=== PATIENT | female | born 1940 | race Caucasian/White ===

== ENCOUNTER → 2016-10-21 | Outpatient (CLI) | payer MEDICARE ==
--- NOTE | 2016-10-21 14:34 | MM ---
Reason for exam: screening (asymptomatic). Last mammogram was performed 1 year ago. History: Patient is postmenopausal. Benign cyst aspiration of the right breast, April 25, 2004. Took estrogen for 20 years beginning at age 41. Physical Findings: A clinical breast exam by your physician is recommended on an annual basis and results should be correlated with mammographic findings. MG 3D Screening Mammo W/Cad Bilateral CC and MLO view(s) were taken. Prior study comparison: October 16, 2015, bilateral MG 3d screening mammo w/cad. September 06, 2014, bilateral MG screening mammo w CAD. The breast tissue is heterogeneously dense. This may lower the sensitivity of mammography. New nodule inner upper right breast 8.2cm from nipple. This finding is changed when compared with previous exams. ASSESSMENT: Incomplete: need additional imaging evaluation, BI-RAD 0 RECOMMENDATION: Special view mammogram and ultrasound of the right breast. [facility] will attempt to contact patient to return for supplemental views and ultrasound.
== END | disposition home or self-care (01) ==
LOC: RADMAMWWP 07:25
PROVIDERS: ATTEND Internal Medicine
DX: Z12.31 Encounter for screening mammogram for malignant neoplasm of breast (principal)
CPT/HCPCS: 77063; G0202

== ENCOUNTER → 2016-11-02 | Outpatient (CLI) | payer MEDICARE ==
--- NOTE | 2016-11-02 14:49 | MM ---
Reason for exam: additional evaluation requested from abnormal screening. Last mammogram was performed less than 1 month ago. History: Patient is postmenopausal. Benign cyst aspiration of the right breast, April 25, 2004. Took estrogen for 20 years beginning at age 41. Physical Findings: Nurse did not find any significant physical abnormalities on exam. MG 3D Work Up W/Cad RT Spot compression CC, spot compression MLO, and LM view(s) were taken of the right breast. Prior study comparison: October 21, 2016, bilateral MG 3d screening mammo w/cad. October 16, 2015, bilateral MG 3d screening mammo w/cad. There are scattered fibroglandular densities. Finding: There are typically benign calcifications in the right breast. These results were verbally communicated with the patient and result sheet given to the patient on 11/02/16. ASSESSMENT: Probably benign, BI-RAD 3 RECOMMENDATION: Follow-up diagnostic mammogram of the right breast in 6 months.
== END | disposition home or self-care (01) ==
LOC: RADMAMWWP 14:06
PROVIDERS: ATTEND Internal Medicine
DX: R92.8 Other abnormal and inconclusive findings on diagnostic imaging of breast (principal)
CPT/HCPCS: G0206; G0279

== ENCOUNTER → 2017-01-07 | Outpatient (CLI) | payer MEDICARE ==
[2017-01-07 09:40] LABS: ALT 36 U/L (9-52); AST 27 U/L (14-36); Alkaline Phosphatase 67 U/L (38-126); Anion Gap 11 mmol/L; Blood Urea Nitrogen 21 mg/dL (7-17); Carbon Dioxide 28 mmol/L (22-30); Chloride 105 mmol/L (98-107); Cholesterol 175 mg/dL (<200); Glucose 108 mg/dL (74-99); HDL Cholesterol 71 mg/dL (40-60); Non-African American GFR(MDRD) 54 (>60 ml/min/1.73 sqM); Potassium 4.2 mmol/L (3.5-5.1); Sodium 144 mmol/L (137-145); Total Bilirubin 0.8 mg/dL (0.2-1.3); Total Protein 7.5 g/dL (6.3-8.2)
== END | disposition home or self-care (01) ==
LOC: LABWHC1 08:54
PROVIDERS: ATTEND Internal Medicine Interventional Cardiology
DX: E78.2 Mixed hyperlipidemia (principal)
CPT/HCPCS: 36415; 80053; 80061

== ENCOUNTER → 2017-07-12 | Outpatient (CLI) | payer MEDICARE ==
--- NOTE | 2017-07-12 10:48 | MM ---
Reason for exam: follow-up at short interval from prior study. Last mammogram was performed 8 months ago. History: Patient is postmenopausal. Benign cyst aspiration of the right breast, April 25, 2004. Took estrogen for 20 years beginning at age 41. Physical Findings: Nurse Summary: 1cm nodule in the right breast at 2 o'clock (nurse mj). MG 3D Diag Mammo W/Cad RT CC and MLO view(s) were taken of the right breast. Prior study comparison: November 02, 2016, right breast MG 3d work up w/cad RT. October 21, 2016, bilateral MG 3d screening mammo w/cad. The breast tissue is heterogeneously dense. This may lower the sensitivity of mammography. Stable 1cm circumscribed mass at 2 o'clock. This may correspond to the palpable finding. Benign vascular calcifications. These results were verbally communicated with the patient and result sheet given to the patient on 07/12/17. ASSESSMENT: Incomplete: need additional imaging evaluation, BI-RAD 0 RECOMMENDATION: Ultrasound of the right breast. (upper inner quadrant)
--- NOTE | 2017-07-12 10:52 | USB ---
Reason for exam: additional evaluation requested from abnormal screening. History: Patient is postmenopausal. Benign cyst aspiration of the right breast, April 25, 2004. Took estrogen for 20 years beginning at age 41. US Breast Limited RT Right breast ultrasound demonstrates a 0.9 x 0.9 x 0.4cm oval, hypoechoic lesion at 1 o'clock and hyperechoic dense tissue at 2:30 BB measuring 0.7 x 0.4 x 0.2cm. These results were verbally communicated with the patient and result sheet given to the patient on 07/12/17. ASSESSMENT: Suspicious, BI-RAD 4 RECOMMENDATION: Stereotactic or US core biopsy of the right breast 9mm lesion likely corresponding to mammo abnormality. (size and depth may make ultrasound little more difficult than stereo? radiologist preference) Patient states she will contact Dr. Poe this afternoon to discuss follow up and biopsy. PRELIMINARY REPORT CALLED AND FAXED TO DR. POE ON 07/12/17. [facility]
== END | disposition home or self-care (01) ==
LOC: RADMAMWWP 08:46
PROVIDERS: ATTEND Internal Medicine
DX: R92.8 Other abnormal and inconclusive findings on diagnostic imaging of breast (principal)
CPT/HCPCS: 77065; 76642; G0279

== ENCOUNTER → 2017-08-02 | Day surgery (SDC) | payer MEDICARE ==
[2017-08-02 13:52] VITALS: PULSE 76; RESP 16; BMI 26.4
[2017-08-02 15:27] VITALS: BP 155/67; TEMP 97.6
--- NOTE | 2017-08-02 15:48 | MM ---
EXAMINATION TYPE: MG stereo VAD BX RT DATE OF EXAM: 08/02/2017 COMPARISON: Mammogram and ultrasound July 12, 2017 and older studies CLINICAL HISTORY: Abnormal mammogram and ultrasound. TECHNIQUE: Stereotactic guided core biopsy of right breast with clip placement and follow-up two-view mammogram. FINDINGS: The procedure of stereotactic guided core biopsy was explained to the patient. Benefits, alternatives, and risks were discussed. An informed consent was then obtained. [facility] pathway for [facility] was chosen. Shortness pathway was medial approach. The lesion was difficult to localize due to posterior location using this approach the inferior approach had to be chosen. I performed the localization, then performed the remainder of the procedure. Overlying skin is cleansed with Betadine. Lidocaine with bicarbonate is used as anesthetic into the skin and deeper tissue. Lidocaine with epinephrine is used as anesthetic into the deeper tissue. A vacuum assisted biopsy gun was used to obtain multiple core samples. The patient tolerated the procedure well without any immediate complication. The patient was kept in the radiology department for short stay after the procedure and then discharged home in stable condition. Post biopsy mammogram shows the clip to appear in satisfactory position relative to the targeted area of concern on the preprocedure images. IMPRESSION: SUCCESSFUL, UNCOMPLICATED STEREOTACTIC GUIDED CORE BIOPSY OF AREA OF CONCERN IN THE RIGHT BREAST, FULL PATHOLOGY RESULTS TO FOLLOW. Intermediate index of suspicion noted at time of procedure. Pathology Results: Benign BREAST, RIGHT, STEREOTACTIC CORE BIOPSY: FIBROCYSTIC CHANGES INCLUDING CYSTS, FIBROSIS, APOCRINE METAPLASIA, SCLEROSING ADENOSIS, FOCAL USUAL TYPE DUCTAL HYPERPLASIA AND RARE MICROCALCIFICATIONS. Recommendation Follow up mammogram of the right breast in 6 months. KLARISSA
== END ==
LOC: RADMAMWWP 13:24
PROVIDERS: ATTEND Internal Medicine
DX: R92.8 Other abnormal and inconclusive findings on diagnostic imaging of breast (principal); N60.11 Diffuse cystic mastopathy of right breast; N60.21 Fibroadenosis of right breast
CPT/HCPCS: 88305; 19081; A4648; J2001

== ENCOUNTER → 2017-12-30 | Outpatient (CLI) | payer MEDICARE ==
[2017-12-30 10:37] LABS: Basophils % (A) 0 %; Eosinophils # (A) 0.4 k/uL (0-0.7); Eosinophils % (A) 5 %; HCT 41.3 % (34.0-46.0); HGB 13.7 gm/dL (11.4-16.0); Lymphocytes # (A) 1.9 k/uL (1.0-4.8); Lymphocytes % (A) 29 %; MCH 30.9 pg (25.0-35.0); MCHC 33.1 g/dL (31.0-37.0); MCV 93.2 fL (80.0-100.0); Mean Platelet Volume 7.4; Monocytes # (A) 0.5 k/uL (0-1.0); Monocytes % (A) 8 %; Neutrophils # (A) 3.5 k/uL (1.3-7.7); Neutrophils % (A) 55 %; Platelet Count 238 k/uL (150-450); RBC 4.43 m/uL (3.80-5.40); RDW 12.9 % (11.5-15.5); WBC 6.5 k/uL (3.8-10.6)
[2017-12-30 10:44] LABS: Albumin 4.5 g/dL (3.5-5.0); Calcium 10.1 mg/dL (8.4-10.2); Potassium 4.2 mmol/L (3.5-5.1); Total Bilirubin 0.7 mg/dL (0.2-1.3); Total Protein 7.5 g/dL (6.3-8.2)
[2017-12-30 20:02] LABS: Hemoglobin A1C 6.2 % (4.0-6.0)
== END | disposition home or self-care (01) ==
LOC: LABWHC1 08:56
PROVIDERS: ATTEND Internal Medicine Interventional Cardiology
DX: I10 Essential (primary) hypertension (principal); I25.10 Atherosclerotic heart disease of native coronary artery without angina pectoris; E78.2 Mixed hyperlipidemia; E11.9 Type 2 diabetes mellitus without complications
CPT/HCPCS: 36415; 80053; 80061; 82550; 83036; 85025

== ENCOUNTER → 2018-02-03 | Outpatient (CLI) | payer MEDICARE ==
--- NOTE | 2018-02-03 10:44 | MM ---
Reason for exam: follow-up at short interval from prior study. Last mammogram was performed 7 months ago. History: Patient is postmenopausal and has history of other cancer at age 77. Benign MG stereo VAD BX RT of the right breast, August 02, 2017. Benign cyst aspiration of the right breast, April 25, 2004. Took estrogen for 20 years beginning at age 41. Physical Findings: Nurse did not find any significant physical abnormalities on exam. MG 3D Diag Mammo W/Cad SKYE Bilateral CC and MLO view(s) were taken. Prior study comparison: July 12, 2017, right breast MG 3d diag mammo w/cad RT. November 02, 2016, right breast MG 3d work up w/cad RT. The breast tissue is heterogeneously dense. This may lower the sensitivity of mammography. There are benign appearing round vascular calcifications bilaterally. Previous mammotome biopsy in the right breast. There is chronic nodularity in the left breast. There is no dominant lesion. Asymmetric breast tissue left inferior breast is stable. These results were verbally communicated with the patient and result sheet given to the patient on 02/03/18. ASSESSMENT: Benign, BI-RAD 2 RECOMMENDATION: Routine screening mammogram of both breasts in 1 year.
--- NOTE | 2018-02-03 10:46 | USB ---
Reason for exam: follow-up at short interval from prior study. History: Patient is postmenopausal and has history of other cancer at age 77. Benign MG stereo VAD BX RT of the right breast, August 02, 2017. Benign cyst aspiration of the right breast, April 25, 2004. Took estrogen for 20 years beginning at age 41. US Breast RT Right complete breast ultrasound includes all four quadrants, the retroareolar region and axilla. Finding demonstrates a 7 x 2 x 8mm oval, mixed lesion at 12 o'clock, decreased in size after benign biopsy 6 months ago. These results were verbally communicated with the patient and result sheet given to the patient on 02/03/18. ASSESSMENT: Benign, BI-RAD 2 RECOMMENDATION: Routine screening mammogram of both breasts in 1 year.
== END | disposition home or self-care (01) ==
LOC: RADMAMWWP 08:45
PROVIDERS: ATTEND Surgery
DX: R92.8 Other abnormal and inconclusive findings on diagnostic imaging of breast (principal)
CPT/HCPCS: 77066; 76641; G0279; 77062

== ENCOUNTER → 2018-07-05 | Outpatient (CLI) | payer MEDICARE ==
[2018-07-05 10:04] LABS: Appearance,Urine Clear (Clear); Bacteria,Urine Rare /hpf; Bilirubin,Urine Negative (Negative); Blood,Urine Negative (Negative); Color,Urine Yellow; Glucose,Urine (UA) Negative (Negative); Hyaline Casts,Urine 35 /lpf (0-2); Ketones,Urine Negative (Negative); Leukocyte Esterase,Urine Small (Negative); Mucus,Urine Occasional /hpf; Nitrite,Urine Negative (Negative); Protein,Urine Trace (Negative); RBC,Urine 1 /hpf (0-5); Specific Gravity,Urine 1.021 (1.001-1.035); Squamous Epithelial Cell,Urine 1 /hpf (0-4); Transitional Epi Cells,Urine <1 /hpf (0-1); Urobilinogen,Urine <2.0 mg/dL (<2.0); WBC,Urine 5 /hpf (0-5)
[2018-07-05 10:41] LABS: Basophils % (A) 1 %; Eosinophils # (A) 0.2 k/uL (0-0.7); Eosinophils % (A) 3 %; HCT 39.4 % (34.0-46.0); Lymphocytes # (A) 1.8 k/uL (1.0-4.8); Lymphocytes % (A) 32 %; MCH 30.6 pg (25.0-35.0); MCV 92.9 fL (80.0-100.0); Mean Platelet Volume 7.6; Monocytes # (A) 0.5 k/uL (0-1.0); Monocytes % (A) 8 %; Neutrophils # (A) 2.9 k/uL (1.3-7.7); Neutrophils % (A) 52 %; Platelet Count 266 k/uL (150-450); RBC 4.24 m/uL (3.80-5.40); RDW 13.5 % (11.5-15.5); WBC 5.6 k/uL (3.8-10.6)
[2018-07-05 17:10] LABS: Albumin 4.7 g/dL (3.80-4.90); Albumin/Globulin Ratio 2.14 (1.60-3.17); Calcium 10.1 mg/dL (8.7-10.3); Globulin 2.2 g/dL (1.6-3.3); LDL Cholesterol,Calculated 94.8 mg/dL (0.0-131.0); Magnesium 1.8 mg/dL (1.5-2.4); Potassium 3.8 mmol/L (3.5-5.5); Total Bilirubin 0.8 mg/dL (0.3-1.2); Total Protein 6.9 g/dL (6.2-8.2); Uric Acid 7.4 mg/dL (2.9-7.7); VLDL Calculation 17.2 mg/dL (5.00-40.00)
[2018-07-05 17:31] LABS: T4, Free (Free Thyroxine) 0.8 ng/dL (0.80-1.80)
[2018-07-05 18:21] LABS: Hemoglobin A1C 6.3 % (4.0-6.0)
== END ==
LOC: LABWHC1 08:11
PROVIDERS: ATTEND Internal Medicine
DX: I10 Essential (primary) hypertension (principal); E78.2 Mixed hyperlipidemia; E55.9 Vitamin D deficiency, unspecified; R73.03 Prediabetes
CPT/HCPCS: 36415; 80053; 80061; 81001; 82043; 82306; 82550; 82570; 83036; 83735; 84439; 84443; 84550; 85025

== ENCOUNTER → 2019-02-07 | Outpatient (CLI) | payer MEDICARE ==
--- NOTE | 2019-02-07 14:39 | MM ---
Reason for exam: additional evaluation requested from prior study. Last mammogram was performed 1 year ago. History: Patient is postmenopausal and has history of other cancer at age 77. Benign MG stereo VAD BX RT of the right breast, August 02, 2017. Benign cyst aspiration of the right breast, April 25, 2004. Took estrogen for 20 years beginning at age 41. Physical Findings: Nurse Summary: 0.5cm nodule in the right breast at 2 o'clock (nurse TM). MG 3D Diag Mammo W/Cad SKYE Bilateral CC and MLO view(s) were taken. Prior study comparison: February 03, 2018, bilateral MG 3d diag mammo w/cad SKYE. July 12, 2017, right breast MG 3d diag mammo w/cad RT. The breast tissue is heterogeneously dense. This may lower the sensitivity of mammography. Benign appearing bilateral calcifications. There is chronic nodularity in the left breast reduced in size. These results were verbally communicated with the patient and result sheet given to the patient on 02/07/19. ASSESSMENT: Incomplete: need additional imaging evaluation, BI-RAD 0 RECOMMENDATION: Ultrasound of the right breast.
--- NOTE | 2019-02-07 14:40 | USB ---
Reason for exam: additional evaluation requested from abnormal screening. History: Patient is postmenopausal and has history of other cancer at age 77. Benign MG stereo VAD BX RT of the right breast, August 02, 2017. Benign cyst aspiration of the right breast, April 25, 2004. Took estrogen for 20 years beginning at age 41. US Breast Limited RT Right limited breast ultrasound including focal area of concern, retroareolar and axilla demonstrates no cystic or solid lesion seen. These results were verbally communicated with the patient and result sheet given to the patient on 02/07/19. ASSESSMENT: Benign, BI-RAD 2 RECOMMENDATION: Routine screening mammogram of both breasts in 1 year. Manage patient on a clinical basis.
== END | disposition home or self-care (01) ==
LOC: RADMAMWWP 12:42
PROVIDERS: ATTEND Internal Medicine
DX: N63.10 Unspecified lump in the right breast, unspecified quadrant (principal); R92.8 Other abnormal and inconclusive findings on diagnostic imaging of breast
CPT/HCPCS: 77066; 76642; G0279; 77062

== ENCOUNTER → 2019-02-14 | Outpatient (CLI) | payer MEDICARE ==
[2019-02-14 16:38] LABS: African American GFR (CKD) 55.3 (60.0-200.0); Albumin 4.5 g/dL (3.80-4.90); Albumin/Globulin Ratio 2.14 (1.60-3.17); Anion Gap 11.4 mmol/L (4.00-12.00); BUN/Creat Ratio 25.45 Ratio (12.00-20.00); Calcium 9.9 mg/dL (8.7-10.3); Carbon Dioxide 26.6 mmol/L (21.6-31.8); Chol/HDL Ratio 2.8; Globulin 2.1 g/dL (1.6-3.3); LDL Cholesterol,Calculated 72.6 mg/dL (0.0-131.0); Potassium 4.2 mmol/L (3.5-5.5); Total Bilirubin 0.7 mg/dL (0.2-1.2); Total Protein 6.6 g/dL (6.2-8.2); VLDL Calculation 26.4 mg/dL (5.00-40.00)
[2019-02-14 17:50] LABS: Hemoglobin A1C 6.2 % (4.0-6.0)
== END | disposition home or self-care (01) ==
LOC: LABWHC1 07:48
PROVIDERS: ATTEND Internal Medicine Interventional Cardiology
DX: E11.9 Type 2 diabetes mellitus without complications (principal); E78.5 Hyperlipidemia, unspecified
CPT/HCPCS: 36415; 80053; 80061; 83036

== ENCOUNTER → 2019-02-16 | Outpatient (CLI) | payer MEDICARE ==
--- NOTE | 2019-02-17 07:07 | US ---
EXAMINATION TYPE: US kidneys/renal and bladder DATE OF EXAM: 02/16/2019 COMPARISON: NONE CLINICAL HISTORY: N18.2. CKD Stage 2. EXAM MEASUREMENTS: Right Kidney: 9.4 x 5.4 x 4.4 cm Left Kidney: 9.3 x 4.9 x 5.2 cm Right Kidney: Anechoic area with hypoechoic component seen laterally measurin.6 x 2.7 x 2.4 cm. Left Kidney: Indistinct hypoechoic area seen mid measurin.8 x 1.4 x 1.1 cm. ?Minimal cortical thinning bilateral kidneys. Bladder: Appears to be anechoic Bilateral Jets seen: Yes IMPRESSION: 1. Bilateral renal cystic changes seen. No solid mass identified.
== END | disposition home or self-care (01) ==
LOC: RADUSMAIN 17:29
PROVIDERS: ATTEND Internal Medicine
DX: N18.2 Chronic kidney disease, stage 2 (mild) (principal)
CPT/HCPCS: 76770

== ENCOUNTER → 2019-08-23 | Outpatient (CLI) | payer MEDICARE ==
[2019-08-23 09:49] LABS: Basophils % (A) 0 %; Eosinophils # (A) 0.2 k/uL (0-0.7); Eosinophils % (A) 3 %; HCT 45.4 % (34.0-46.0); HGB 14.5 gm/dL (11.4-16.0); Lymphocytes # (A) 1.6 k/uL (1.0-4.8); Lymphocytes % (A) 26 %; MCH 30.1 pg (25.0-35.0); MCHC 31.9 g/dL (31.0-37.0); MCV 94.5 fL (80.0-100.0); Mean Platelet Volume 7.9; Monocytes # (A) 0.5 k/uL (0-1.0); Monocytes % (A) 7 %; Neutrophils # (A) 3.7 k/uL (1.3-7.7); Neutrophils % (A) 61 %; Platelet Count 219 k/uL (150-450); RBC 4.81 m/uL (3.80-5.40); RDW 13.7 % (11.5-15.5); WBC 6.2 k/uL (3.8-10.6)
[2019-08-23 16:10] LABS: African American GFR (CKD) 61.6 (60.0-200.0); Albumin 4.5 g/dL (3.80-4.90); Albumin/Globulin Ratio 1.88 (1.60-3.17); Anion Gap 6.2 mmol/L (4.00-12.00); Calcium 9.8 mg/dL (8.7-10.3); Carbon Dioxide 27.8 mmol/L (21.6-31.8); Chol/HDL Ratio 2.63; Globulin 2.4 g/dL (1.6-3.3); LDL Cholesterol,Calculated 68.2 mg/dL (0.0-131.0); Non-African American GFR(CKD) 53.2 (60.0-200.0); Potassium 4.7 mmol/L (3.5-5.5); Total Bilirubin 0.8 mg/dL (0.2-1.2); Total Protein 6.9 g/dL (6.2-8.2); VLDL Calculation 19.8 mg/dL (5.00-40.00)
[2019-08-23 19:01] LABS: Hemoglobin A1C 5.9 % (4.0-6.0)
== END | disposition home or self-care (01) ==
LOC: LABWHC1 08:24
PROVIDERS: ATTEND Internal Medicine Interventional Cardiology
DX: Z00.00 Encounter for general adult medical examination without abnormal findings (principal); E78.2 Mixed hyperlipidemia; R73.03 Prediabetes; I10 Essential (primary) hypertension
CPT/HCPCS: 36415; 80053; 80061; 83036; 84436; 84443; 85025

== ENCOUNTER → 2020-01-04 | Outpatient (CLI) | payer MEDICARE ==
[2020-01-04 08:26] LABS: Basophils % (A) 1 %; Eosinophils # (A) 0.2 k/uL (0-0.7); Eosinophils % (A) 2 %; HCT 42.8 % (34.0-46.0); HGB 13.8 gm/dL (11.4-16.0); Lymphocytes # (A) 2.6 k/uL (1.0-4.8); Lymphocytes % (A) 37 %; MCH 31.5 pg (25.0-35.0); MCHC 32.3 g/dL (31.0-37.0); MCV 97.4 fL (80.0-100.0); Mean Platelet Volume 7.3; Monocytes # (A) 0.6 k/uL (0-1.0); Monocytes % (A) 8 %; Neutrophils # (A) 3.6 k/uL (1.3-7.7); Neutrophils % (A) 50 %; Platelet Count 226 k/uL (150-450); RBC 4.39 m/uL (3.80-5.40); RDW 12.7 % (11.5-15.5); WBC 7.2 k/uL (3.8-10.6)
[2020-01-04 17:07] LABS: Hemoglobin A1C 6.3 % (4.0-6.0)
[2020-01-04 18:47] LABS: African American GFR (CKD) 54.9 (60.0-200.0); Albumin 4.5 g/dL (3.80-4.90); Albumin/Globulin Ratio 2.05 (1.60-3.17); BUN/Creat Ratio 23.64 Ratio (12.00-20.00); Calcium 9.9 mg/dL (8.7-10.3); Chol/HDL Ratio 2.68; Globulin 2.2 g/dL (1.6-3.3); LDL Cholesterol,Calculated 70.2 mg/dL (0.0-131.0); Non-African American GFR(CKD) 47.4 (60.0-200.0); Potassium 4.4 mmol/L (3.5-5.5); Total Bilirubin 0.8 mg/dL (0.3-1.2); Total Protein 6.7 g/dL (6.2-8.2); VLDL Calculation 23.8 mg/dL (5.00-40.00)
== END | disposition home or self-care (01) ==
LOC: LABWHC1 07:50
PROVIDERS: ATTEND Nurse Practitioner Adult Health
DX: E78.2 Mixed hyperlipidemia (principal); I10 Essential (primary) hypertension; R73.03 Prediabetes
CPT/HCPCS: 36415; 80053; 80061; 83036; 84443; 85025

== ENCOUNTER → 2020-01-19 | Outpatient (CLI) | payer MEDICARE ==
--- NOTE | 2020-01-19 12:10 | XR ---
EXAMINATION TYPE: XR cervical spine limited DATE OF EXAM: 01/19/2020 Comparison: 10/16/2013 Clinical History: 79-year-old female M47.22 spondylosis Findings: Multilevel uncovertebral joint and hypertrophic facet of L3. Moderately advanced degenerative disc di sease and endplate spondylosis C5-C7 levels. Reversal of the normal cervical lordosis but with preser lottie alignment. Normal odontoid view. Median sternotomy wires are present. No predental space widening or prevertebral soft tissue swelling . Impression: Moderate to advanced multilevel spondylotic change redemonstrated. Reversal of the normal cervical lo rdosis could be positional or due to muscle spasm.
== END | disposition home or self-care (01) ==
LOC: RADXRMAIN 11:03
PROVIDERS: ATTEND Internal Medicine
DX: M47.812 Spondylosis without myelopathy or radiculopathy, cervical region (principal)
CPT/HCPCS: 72040

== ENCOUNTER → 2020-04-23 | Outpatient (CLI) | payer MEDICARE ==
--- NOTE | 2020-04-24 09:47 | MM ---
Reason for exam: screening (asymptomatic). Last mammogram was performed 1 year and 2 months ago. History: Patient is postmenopausal and has history of other cancer at age 77. Benign MG stereo VAD BX RT of the right breast, August 02, 2017. Benign cyst aspiration of the right breast, April 25, 2004. Took hormonal contraceptives for 10 years. Took estrogen for 20 years beginning at age 41. Physical Findings: A clinical breast exam by your physician is recommended on an annual basis and results should be correlated with mammographic findings. MG 3D Screening Mammo W/Cad Bilateral CC and MLO view(s) were taken. Prior study comparison: February 07, 2019, bilateral MG 3d diag mammo w/cad SKYE. February 03, 2018, bilateral MG 3d diag mammo w/cad SKYE. The breast tissue is heterogeneously dense. This may lower the sensitivity of mammography. There are benign appearing round, vascular calcifications bilaterally. Previous mammotome biopsy in the right breast. There is no discrete abnormality. ASSESSMENT: Benign, BI-RAD 2 RECOMMENDATION: Routine screening mammogram of both breasts in 1 year.
== END | disposition home or self-care (01) ==
LOC: RADMAMWWP 09:32
PROVIDERS: ATTEND Internal Medicine
DX: Z12.31 Encounter for screening mammogram for malignant neoplasm of breast (principal)
CPT/HCPCS: 77063; 77067

== ENCOUNTER 2020-06-24 20:23 | Emergency (ER) | payer MEDICARE ==
[2020-06-24 22:30] VITALS: TEMP 97.7
--- NOTE | 2020-06-24 22:49 | ED ---
Medical Decision Making - Medical Decision Making Dictation was produced using Med fusion dictation software. please excuse any grammatical, word or spelling errors. This patient was cared for during a federal and state declared state of emergency secondary to Covid 19 80-year-old female presents to the emergency department with hypertension. Patient states that she has medical history of hypertension she is on multiple antihypertensive medications. Patient also has history of cardiac disease. She has been having her blood pressure managed by her primary care doctor and film spooler with slight improvement. She just was told to increase her losartan to twice daily. She had to decrease her metoprolol recently because of bradycardia. Current medications are as follows Hydrochlorothiazide 25 mg daily Atorvastatin 40 mg daily Metoprolol 50 mg twice a day Cozaar 100 mg twice a day, prior to today was once a day Amlodipine 5 mg twice a day Patient denies any chest pain, shortness of breath, headache or strokelike symptoms. Contact her primary care physician and was told to come to the emergency department. The ROS documented in this emergency department record has been reviewed and confirmed by me. Those systems with pertinent positive or negative responses have been documented in the HPI. All other systems are other negative and/or noncontributory. PHYSICAL EXAM: General Impression: Alert and oriented x3, not in acute distress HEENT: Normocephalic atraumatic, extra-ocular movements intact, pupils equal and reactive to light bilaterally, mucous membranes moist. Cardiovascular: Heart regular rate and rhythm Chest: Able to complete full sentences, no retractions, no tachypnea Abdomen: abdomen soft, non-tender, non-distended, no organomegaly Musculoskeletal: Pulses present and equal in all extremities, no peripheral edema Motor: no focal deficits noted Neurological: CN II-XII grossly intact, no focal motor or sensory deficits noted Skin: Intact with no visualized rashes Psych: Normal affect and mood Medical decision making: Patient has clinical presentation consistent with asymptomatic hypertension. She does not have any high-risk features. Patient has established history of hypertension. She is well-appearing and has normal vital signs. This is discussed with patient's primary care physician who requested patient be given IM hydralazine and to be given a prescription for 25 mg of hydralazine twice a day. Patient given IM hydralazine observed in emergency department no apparent issues. Blood pressures improved. Patient be discharged home with instructions to follow-up with Dr. Poe Disposition Clinical Impression: Hypertension Disposition: HOME SELF-CARE Condition: Good Instructions (If sedation given, give patient instructions): Hypertension (ED) Additional Instructions: Please check your blood pressures regularly especially during changes of her blood pressure medications.. If you start to feel lightheaded disc,ontinue hydralazine. Otherwise, it is important to follow-up with your primary care physician for outpatient management of blood pressure. Prescriptions: hydrALAZINE HCL 25 mg PO BID 6 Days #12 tablet Is patient prescribed a controlled substance at d/c from ED?: No Referrals: Suki Poe MD [Primary Care Provider] - 1-2 days Time of Disposition: 23:18
[2020-06-24] MEDS ORDERED: hydrALAZINE HCL 20 MG/ML 1 ML VIAL IM STA (22:51)
[2020-06-25] MEDS ORDERED: SODIUM CHLORIDE 0.9% 1,000 ML IV ONE (00:21)
[2020-06-25 01:22] VITALS: RESP 16
[2020-06-25 01:40] VITALS: BP 116/54; PULSE 62
== END 2020-06-25 01:40 | disposition home or self-care (01) ==
LOC: EC 20:23
DX: I10 Essential (primary) hypertension (principal)
CPT/HCPCS: 99283; 96360; 96372; J0360

== ENCOUNTER → 2021-10-23 | Outpatient (CLI) | payer MEDICARE ==
--- NOTE | 2021-10-23 16:47 | BD ---
EXAMINATION TYPE: Axial Bone Density DATE OF EXAM: 10/23/2021 CLINICAL HISTORY: 81 year old Female. ICD-10 CODE: M81.0 AGE-RELATED OSTEOPOROSIS W/ Height: 60 Weight: 137.2 FRAX RISK QUESTIONS: Alcohol (3 or more units per day): no Family History (Parent hip fracture): yes Glucocorticoids (More than 3mos): no (Ex: prednisone, prednisolone, methylprednisolone, dexamethasone, and hydrocortisone). History of Fracture in Adulthood: yes Secondary Osteoporosis: 1. Type 1 Diabetes: no 2. Hyperthyroidism: no 3. Menopause before 45: no 4. Malnutrition: no 5. Chronic liver disease: no Rheumatoid Arthritis: no Current Tobacco Use: no RISK FACTORS HISTORY OF: Surgery to Spine/Hip(right/left)/Wrist (right/left): no Family History of Osteoporosis: no Active: yes Diet low in dairy products/other sources of calcium: no Postmenopausal woman: yes Lost more than 2 inches in height since high school: no MEDICATIONS: Additional History: EXAM MEASUREMENTS: Bone mineral densitometry was performed using the [employer]. Bone mineral density as measured about the Lumbar spine is: ----- L1-L4(G/cm2): 1.123 T Score Values are as follows: ----- L1: 0.2 ----- L2: -0.7 ----- L3: -0.4 ----- L4: -1.1 ----- L1-L4: -0.5 Bone mineral density has: decreased -1.1 % since study of: 10.16.2015 Bone mineral density about the R hip (g/cm2): 0.803 Bone mineral density about the L hip (g/cm2): 0.758 T Score values are as follows: -----R Neck: -1.7 -----L Neck: -2.0 -----R Total: -0.2 -----L Total: -0.4 Bone mineral density has: decreased -2.5 % since study of: 10.16.2015 FRAX%s: The graph provided illustrates a 22.8% chance for a major osteoporotic fx and a 6.5% chance for the hips probability for fx in 10 years time. IMPRESSION: Osteopenia (T Score between -2.5 and -1). There is slightly increased risk of fracture and the patient may be considered for treatment. Re-Screen 2-5 years. NOTE: T-SCORE=SD OF THE YOUNG ADULT MEAN.
--- NOTE | 2021-10-24 10:32 | MM ---
Reason for Exam: Screening (asymptomatic). Last mammogram was performed 1 year(s) and 6 month(s) ago. Patient History: Menarche at age 12. First Full-Term at age 17. Postmenopausal. Other cancer, age 77. Estrogen for 20 years from age 41 until age 61. Patient used Hormonal Contraceptives for 10 years. 08/02/2017, Benign Core Biopsy on the right side. 04/25/2004, Benign Cyst Aspiration on the right side. Risk Values: Prisca 5 year model risk: 1.3%. NCI Lifetime model risk: 1.8%. Prior Study Comparison: 07/12/2017 Right Diagnostic Mammogram, LOCATED [facility]IN [facility]. 02/03/2018 Bilateral Diagnostic Mammogram, LOCATED [facility]. 02/07/2019 Bilateral Diagnostic Mammogram, LOCATED [facility]. 04/23/2020 Bilateral Screening Mammogram, LOCATED [facility]. Tissue Density: The breast tissue is heterogeneously dense. This may lower the sensitivity of mammography. Findings: Analyzed By CAD. Multiple benign-appearing vascular calcifications are present. Benign round calcifications are present. A core marker is within the right breast. No suspicious groups of microcalcifications, spiculated or lobular masses, architectural distortion or other secondary signs of malignancy are mammographically apparent. Overall Assessment: Benign, BI-RAD 2 Management: Screening Mammogram of both breasts in 1 year. A negative mammogram report should not preclude additional follow up of suspicious palpable abnormalities. Patient should continue monthly self breast exam. A clinical breast exam by your physician is recommended on an annual basis and results should be correlated with mammographic findings. Electronically signed and approved by: Bobo Sol D.O. Radiologis
== END | disposition home or self-care (01) ==
LOC: RADMAMWWP 09:44
PROVIDERS: ATTEND Internal Medicine
DX: Z12.31 Encounter for screening mammogram for malignant neoplasm of breast (principal); M85.89 Other specified disorders of bone density and structure, multiple sites; Z78.0 Asymptomatic menopausal state
CPT/HCPCS: 77063; 77067; 77080

== ENCOUNTER → 2022-01-02 | Outpatient (CLI) | payer MEDICARE ==
--- NOTE | 2022-01-05 06:50 | US ---
EXAMINATION TYPE: US kidneys/renal and bladder DATE OF EXAM: 01/02/2022 COMPARISON: US 02/16/2019 CLINICAL HISTORY: N18.32 CHRONIC KIDNEY DISEASE, STAGE 3B. CKD stage 3 EXAM MEASUREMENTS: Right Kidney: 9.6 x 4.7 x 5.2 cm Left Kidney: 9.4 x 4.47 x 4.4 cm Right Kidney: Cyst mid/lateral mid (slight increase in size when compared to prior)= 3.7 x 2.9 x 3.3 cm . No hydronephrosis, shadowing calculi, or contour deforming solid mass. Left Kidney: Slighty dilated renal pelvis versus renal sinus cyst . Prominent column of Crow redem onstrated. No hydronephrosis, shadowing calculi, or solid contour deforming mass. Bladder: wnl Bilateral Jets seen: Yes IMPRESSION: 1. No hydronephrosis or shadowing calculi. 2. Bilateral cystic changes redemonstrated. Slightly increased size of right renal cyst.
== END | disposition home or self-care (01) ==
LOC: RADUSWWP 16:08
PROVIDERS: ATTEND Internal Medicine
DX: N18.32 Chronic kidney disease, stage 3b (principal); N28.1 Cyst of kidney, acquired
CPT/HCPCS: 76770

== ENCOUNTER → 2022-02-05 | Outpatient (CLI) | payer MEDICARE ==
[2022-02-05 14:30] LABS: HCT 37.6 % (34.0-46.0); HGB 12.9 gm/dL (11.4-16.0); MCH 32.1 pg (25.0-35.0); MCHC 34.2 g/dL (31.0-37.0); MCV 93.7 fL (80.0-100.0); Mean Platelet Volume 8.7; Platelet Count 207 k/uL (150-450); RBC 4.01 m/uL (3.80-5.40); RDW 12.9 % (11.5-15.5); WBC 9.3 k/uL (3.8-10.6)
[2022-02-05 14:41] LABS: Potassium 3.8 mmol/L (3.5-5.1)
== END | disposition home or self-care (01) ==
LOC: LABPAT 13:17
PROVIDERS: ATTEND Internal Medicine Interventional Cardiology
DX: Z01.812 Encounter for preprocedural laboratory examination (principal); I65.21 Occlusion and stenosis of right carotid artery; R94.39 Abnormal result of other cardiovascular function study
CPT/HCPCS: 80051; 82565; 84520; 85027

== ENCOUNTER 2022-02-09 08:05 | Day surgery (SDC) | payer MEDICARE ==
[2022-02-06 09:42] VITALS: BMI 25.4
[~2022-02-09 08:05] MED LIST: ALPRAZolam 0.25 MG TAB PO PRN; ALPRAZolam 0.5 MG TAB PO PRN; ASPIRIN 325 MG TAB PO STA; ATORVASTATIN 80 MG TAB PO STA; HEPARIN SODIUM,PORCINE 10,000 UNIT in SODIUM CHLORIDE 0.9% 1,000 ML IRRIGATION PRN; HEPARIN SODIUM,PORCINE 2,500 UNIT in SODIUM CHLORIDE 0.9% 250 ML IRRIGATION PRN; NITROGLYCERIN SL TABS 0.4 MG TAB SUBLINGUAL PRN; SODIUM CHLORIDE 0.9% 1,000 ML in EMPTY BAG 1 BAG IV ONE
[2022-02-09 08:54] VITALS: TEMP 96.7
[2022-02-09 08:58] LABS: Glucose,Whole Blood 104 mg/dL (70-110)
[2022-02-09] MEDS ORDERED: fentaNYL (PF) 50 MCG/ML 2 ML AMP IV ONE (10:49)
[2022-02-09] MEDS ORDERED: LIDOCAINE 1% INJ 10MG/ML (30 ML VIAL-PF) SQ ONE (10:52)
[2022-02-09] MEDS ORDERED: MIDAZOLAM 2 MG/2 ML VIAL IV ONE (10:53)
[2022-02-09] MEDS ORDERED: VERAPAMIL SYRINGE (5 MG/10 ML) INTRAARTER ONE (10:58)
[2022-02-09] MEDS ORDERED: HEPARIN SODIUM 1,000 UN/ML (10ML VL) IV ONE (11:04)
[2022-02-09] MEDS ORDERED: IOPAMIDOL-370 125ML BTL INJ ONE (11:16)
[2022-02-09] MEDS ORDERED: RX INFO: IV CONTRAST WAS GIVEN 1 EACH MISC MISCELLANE PRN (11:23)
[2022-02-09] MEDS ORDERED: SODIUM CHLORIDE 0.9% 1,000 ML IV SCH (11:30)
--- NOTE | 2022-02-09 11:30 | P.CARDCATH ---
Date of Procedure: 02/09/22 Description of Procedure: Cardiac Catheterization: The patient is an 81-year-old female with a known history of CAD, post CABG, history of hypertension, hyperlipidemia and diabetes who had a recent abnormal MPI with inferior wall ischemia. Recommendations were made regarding cardiac catheterization, the risks and the complications were discussed with the patient who is in full understanding and agreement. Procedure Description: Patient was brought to photographic laboratory technician in fasting semi-sedated state after receiving Fentanyl and Benadryl achieiving moderate conscious sedated state. Using Xylocaine Anesthesia and Seldinger technique, a 6-Bermudian sheath was introduced in the left radial artery . Subsequently, selective coronary angiography was performed using a 5-Bermudian 4 bend Christin catheter. Multiple views of the coronary artery including hemiaxial views were obtained. The right Christin catheter was used to cannulate the SVG to the RCA and images of the graft were obtained. The right Christin catheter was used to cross the aortic valve and LVEDP was calculated. Following that, catheter and sheath were removed. Hemostasis was obtained with deployment of TR band . There was no immediate complication. Patient was returned to room in stable condition. Of note, the patient received a total of 3000 units of intravenous heparin as well as intra-arterial verapamil. Findings: Left main: This is a large size vessel, bifurcating into LAD and left circumflex, left main has no high-grade stenosis LAD: This is a large size vessel, tapers in the distal third, gives rise to a large diagonal branch proximally. The LAD in the mid segment has 20-30% plaque, the rest of the vessel has no high-grade stenosis Left circumflex: This is a nondominant vessel, large in caliber, giving rise to a large obtuse marginal branch. The proximal circumflex has 30% plaque, the rest of the vessel has no high-grade stenosis. RCA: This is a dominant vessel has a 99% stenosis proximally the stented segment is patent beyond that with 2030% in-stent restenosis. Distally at the bifurcation this vessel is totally occluded with no antegrade flow. There is retrograde flow into the saphenous vein graft to the RCA. SVG to the RCA: The proximal and distal anastomotic sites are patent there is retrograde flow into the mid and proximal RCA but no flow in the distal RCA. Collaterals: There is good collaterals from the left circumflex feeding the PDA and the PLV. Left Ventriculogram: Not performed Hemodynamics: There was no gradient across the aortic valve, LVEDP was 10-12 mmHg Conclusion: 1. Chronically occluded distal RCA at the bifurcation 2. Patent SVG to the RCA 3. Mild disease in the LAD and left circumflex 4. Significant disease in the proximal sun'aq RCA Recommendations: In view of the findings have recommended to continue medical therapy, if she has persistent symptoms that attempt PCI of COMPLAINT ADJUSTER of the RCA can be considered. The findings and the recommendations were discussed with the patient and the family and they were in full understanding and agreement. Duration of sedation is 20 minutes.
[2022-02-09 15:22] VITALS: RESP 16
[2022-02-09 15:32] VITALS: PULSE 59
[2022-02-09 15:38] VITALS: BP 114/59
[2022-02-09] MEDS ORDERED: hydrALAZINE HCL 25 MG TAB PO SCH (21:00)
[2022-02-09] MEDS ORDERED: ATORVASTATIN 40 MG TAB PO SCH (21:00)
[2022-02-09] MEDS ORDERED: ASPIRIN 81 MG PO SCH (21:00)
[2022-02-09] MEDS ORDERED: amLODIPine 5 MG TAB PO SCH (21:00)
[2022-02-10] MEDS ORDERED: NON FORMULARY DRUG (Losartan/Hydrochlorothiazide [Losartan-Hctz 100-25 Mg Tab] 1 EACH Tabl PO SCH (09:00)
[2022-02-10] MEDS ORDERED: NON FORMULARY DRUG (Metoprolol Tartrate [Lopressor] 100 MG Tablet) PO SCH (09:00)
[2022-02-10] MEDS ORDERED: amLODIPine 2.5 MG TAB PO SCH (09:00)
[2022-02-10] MEDS ORDERED: DAPAGLIFLOZIN PROPANEDIOL 5 MG TABLET PO SCH (09:00)
== END 2022-02-09 14:22 | disposition home or self-care (01) ==
LOC: CATHCVL 08:05
PROVIDERS: ATTEND Internal Medicine Interventional Cardiology
DX: I65.21 Occlusion and stenosis of right carotid artery (principal); I25.10 Atherosclerotic heart disease of native coronary artery without angina pectoris; I10 Essential (primary) hypertension; E78.5 Hyperlipidemia, unspecified; E11.9 Type 2 diabetes mellitus without complications
CPT/HCPCS: 93459; C1769 ×2; C1894; J2250; J2001; J3010; J1644; Q9967

== ENCOUNTER → 2023-02-09 | Outpatient (CLI) | payer MEDICARE ==
--- NOTE | 2023-02-10 20:12 | MM ---
Reason for Exam: Screening (asymptomatic). Last mammogram was performed 1 year(s) and 4 month(s) ago. Patient History: Menarche at age 12. First Full-Term at age 17. Postmenopausal. Other cancer, age 77. Estrogen for 20 years from age 41 until age 61. Patient used Hormonal Contraceptives for 10 years. 08/02/2017, Benign Core Biopsy on the right side. 04/25/2004, Benign Cyst Aspiration on the right side. Risk Values: Prisca 5 year model risk: 1.3%. NCI Lifetime model risk: 1.6%. Prior Study Comparison: 02/07/2019 Bilateral Diagnostic Mammogram, [facility]. 04/23/2020 Bilateral Screening Mammogram, [facility]. 10/23/2021 Bilateral MG 3D screening mammo w/cad, [facility]. Tissue Density: There are scattered fibroglandular densities. Findings: Analyzed By CAD. Benign bilateral vascular calcifications. Microclip right breast from prior biopsy. There is no suspicious group of microcalcifications or new suspicious mass in either breast. Overall Assessment: Benign, BI-RAD 2 Management: Screening Mammogram of both breasts in 1 year. . Patient should continue monthly self-breast exams. A clinical breast exam by your physician is recommended on an annual basis. This exam should not preclude additional follow-up of suspicious palpable abnormalities. Note on Prisca scores and lifetime risk: 1. A Prisca score greater than 3% is considered moderate risk. If this is the case, consider specialist referral to assess eligibility for a risk reducing agent. 2. If overall lifetime risk for the development of breast cancer is 20% or higher, the patient may qualify for future screening with alternating mammogram and breast MRI. Electronically signed and approved by: Lawanda Bolanos M.D. Radiologist
== END | disposition home or self-care (01) ==
LOC: RADMAMWWP 14:09
PROVIDERS: ATTEND Internal Medicine
DX: Z12.31 Encounter for screening mammogram for malignant neoplasm of breast (principal); Z78.0 Asymptomatic menopausal state
CPT/HCPCS: 77063; 77067

== ENCOUNTER → 2024-02-11 | Outpatient (CLI) | payer MEDICARE ==
--- NOTE | 2024-02-13 15:19 | MM ---
Reason for Exam: Screening (asymptomatic). Last screening mammogram was performed 12 month(s) ago. Patient History: Menarche at age 12. First Full-Term at age 17. Postmenopausal. Estrogen for 20 years from age 41 until age 61. Patient used Hormonal Contraceptives for 10 years. 08/02/2017, Benign Core Biopsy on the right side. 04/25/2004, Benign Cyst Aspiration on the right side. Risk Values: Prisca 5 year model risk: 1.2%. NCI Lifetime model risk: 1.3%. Prior Study Comparison: 04/23/2020 Bilateral Screening Mammogram, [facility]. 10/23/2021 Bilateral MG 3D screening mammo w/cad, [facility]. 02/09/2023 Bilateral MG 3D screening mammo w/cad, [facility]. Tissue Density: There are scattered areas of fibroglandular density. Findings: Analyzed By CAD. The pattern is symmetrical. Benign vascular calcifications present bilaterally. Core markers within the right breast No suspicious groups of microcalcifications, spiculated or lobular masses, architectural distortion or other secondary signs of malignancy are mammographically apparent. Overall Assessment: Benign, BI-RAD 2 Management: Screening Mammogram of both breasts in 1 year. A negative mammogram report should not preclude additional follow up of suspicious palpable abnormalities. Patient should continue monthly self breast exam. A clinical breast exam by your physician is recommended on an annual basis and results should be correlated with mammographic findings. Note on Prisca scores and lifetime risk: 1. A Prisac score greater than 3% is considered moderate risk. If this is the case, consider specialist referral to assess eligibility for a risk reducing agent. 2. If overall lifetime risk for the development of breast cancer is 20% or higher, the patient may qualify for future screening with alternating mammogram and breast MRI. [facility], , 02/13/2024 3:16 PM. Electronically signed and approved by: Bobo Sol D.O. Radiologis
== END | disposition home or self-care (01) ==
LOC: RADMAMWWP 09:54
PROVIDERS: ATTEND Internal Medicine
DX: Z12.31 Encounter for screening mammogram for malignant neoplasm of breast (principal); Z78.0 Asymptomatic menopausal state; R92.323 Mammographic fibroglandular density, bilateral breasts
CPT/HCPCS: 77063; 77067

== ENCOUNTER 2024-07-31 09:18 | Inpatient (IN) | payer MEDICARE ==
[2024-07-31 09:25] LABS: Glucose,Whole Blood 147 mg/dL (70-110)
[2024-07-31] MEDS: SODIUM CHLORIDE 0.9% 1,000 ML IV STA ×2 (09:29→11:10)
--- NOTE | 2024-07-31 09:29 | ED ---
General Adult HPI - General Stated complaint: Cardiac Arrest Time Seen by Provider: 07/31/24 09:20 Source: patient, RN notes reviewed, old records reviewed - History of Present Illness Initial comments: Patient is an 84-year-old female who was [facility] for cardiac arrest. History primarily obtained from nurse practitioner from [facility]. Was receiving a lexicon stress test. Lexicon medication was administered and resting pictures were being obtained. Shortly after, patient apparently became unresponsive and went into the asystole cardiac arrest. Lexicon was reversed and chest compressions were completed for 1 minute. ROSC was obtained. No additional medications were administered. Patient states she was going there to have stress test done for intermittent chest discomfort. Currently is complaining of some sternal pain on palpation and with deep breath and likely secondary to the chest compressions. It is worse with palpation there. Denies nausea or vomiting or shortness of breath. Is alert and oriented x 4. Has no other acute complaints at this time. Does have a past medically significant for CABG, CAD, diabetes, hypertension, hyperlipidemia. Follows with Dr. Luna of cardiology. - Related Data Home Medications Medication Instructions Recorded Confirmed Aspirin 81 mg PO HS 08/20/15 07/31/24 Atorvastatin [Lipitor] 40 mg PO HS 08/20/15 07/31/24 Losartan/Hydrochlorothiazide 1 tab PO DAILY 08/20/15 07/31/24 [Losartan-Hctz 100-25 mg Tab] amLODIPine [Norvasc] 5 mg PO DAILY 08/20/15 07/31/24 Dapagliflozin Propanediol [Farxiga] 5 mg PO DAILY 02/06/22 07/31/24 Doxycycline Hyclate 100 mg PO BID 07/31/24 07/31/24 Isosorbide Mononitrate ER [Imdur] 30 mg PO DAILY 07/31/24 07/31/24 Metoprolol Tartrate [Lopressor] 25 mg PO HS 07/31/24 07/31/24 Multivitamins, Thera [Multivitamin 1 tab PO DAILY 07/31/24 07/31/24 (formulary)] Previous Rx's Medication Instructions Recorded hydrALAZINE HCL 25 mg PO BID 6 Days #12 tablet 06/24/20 Allergies Allergy/AdvReac Type Severity Reaction Status Date / Time No Known Allergies Allergy Verified 07/31/24 11:17 Review of Systems ROS Statement: Those systems with pertinent positive or pertinent negative responses have been documented in the HPI. ROS Other: All systems not noted in ROS Statement are negative. Past Medical History Past Medical History: Coronary Artery Disease (CAD), Diabetes Mellitus, Hyperlipidemia, Hypertension Additional Past Medical History / Comment(s): DIABETIC -DIET CONTROLLED History of Any Multi-Drug Resistant Organisms: None Reported Past Surgical History: Coronary Bypass/CABG, Heart Catheterization With Stent, Tubal Ligation Additional Past Surgical History / Comment(s): RT HEEL SPUR, Past Anesthesia/Blood Transfusion Reactions: No Reported Reaction Date of Last Stent Placement:: 01/27/06 Past Psychological History: No Psychological Hx Reported Smoking Status: Never smoker Past Alcohol Use History: Occasional Past Drug Use History: None Reported Course Vital Signs 07/31/24 07/31/24 07/31/24 09:22 09:35 09:53 Temperature 96.7 F L Pulse Rate 59 L 59 L Respiratory 14 18 Rate Blood Pressure 123/46 112/55 O2 Sat by Pulse 96 94 L Oximetry 07/31/24 07/31/24 07/31/24 10:15 10:54 11:21 Temperature 97.4 F L Pulse Rate 61 59 L 61 Respiratory 16 17 18 Rate Blood Pressure 115/48 100/54 120/54 O2 Sat by Pulse 95 94 L 94 L Oximetry Medical Decision Making - Medical Decision Making Was pt. sent in by a medical professional or institution (SMITH Apodaca, ENTRY LEVEL WEB DEVELOPER, urgent care, hospital, or longterm...) When possible be specific @ -[facility] from [facility] where a Lexiscan stress test was being performed and experienced cardiac arrest. 1 minute of CPR and reversal of lexicon agent and obtained ROSC. Did you speak to anyone other than the patient for history (EMS, parent, family, police, friend...)? What history was obtained from this source @ -No Did you review nursing and triage notes (agree or disagree)? Why? @ -I reviewed and agree with nursing and triage notes Were old charts reviewed (outside hosp., previous admission, EMS record, old EKG, old radiological studies, urgent care reports/EKG's, longterm records)? Report findings @ -Reviewed old charts with history of CAD. Reviewed EKGs from [facility] which was asystole ROSC episode. Differential Diagnosis (chest pain, altered mental status, abdominal pain women, abdominal pain men, vaginal bleeding, weakness, fever, dyspnea, syncope, headache, dizziness, GI bleed, back pain, seizure, CVA, palpatations, mental health, musculoskeletal)? @ -Differential Chest Pain: Stable Angina, Unstable Angina, STEMI, NSTEMI Aortic Dissection, Pneumothorax, Musculoskeletal, Esophageal Spasm GERD, Cholecystitis, Pancreatitis, Zoster, this is not meant to be an all-inclusive list. EKG interpreted by me (3pts min.). @ -As above X-rays interpreted by me (1pt min.). @ -Chest x-ray shows no obvious acute cardiopulmonary process. CT interpreted by me (1pt min.). @ -None done U/S interpreted by me (1pt. min.). @ -None done What testing was considered but not performed or refused? (CT, X-rays, U/S, labs)? Why? @ -None What meds were considered but not given or refused? Why? @ -None Did you discuss the management of the patient with other professionals (professionals i.e. , PA, ENTRY LEVEL WEB DEVELOPER, lab, RT, psych nurse, social work therapist, reporter anchor, teacher, geospatial program management officer, director of casework)? Give summary @ -Spoke with Dr. Hector who is on-call for cardiology who is in agreement plan for admission to the ICU, patient will be made NPO. Requested patient be given aspirin, statin, as well as started on heparin. This was all completed. Discussed with Dr. Castelan of ICU who accepted the admission. Discussed with Dr. Poe who accepted the admission Was smoking cessation discussed for >3mins.? @ -No Was critical care preformed (if so, how long)? @ -32 min Were there social determinants of health that impacted care today? How? (Kush elessness, low income, unemployed, alcoholism, drug addiction, transportation, low edu. Level, literacy, decrease access to med. care, detention, rehab)? @ -No Was there de-escalation of care discussed even if they declined (Discuss DNR or withdrawal of care, Hospice)? DNR status @ -No What co-morbidities impacted this encounter? (DM, HTN, Smoking, COPD, CAD, Cancer, CVA, ARF, Chemo, Hep., AIDS, mental health diagnosis, sleep apnea, morbid obesity)? @ -None Was patient admitted / discharged? Hospital course, mention meds given and route, prescriptions, significant lab abnormalities, going to OR and other pertinent info. @ -Based on the patient's presentation and physical exam, presents status post cardiac [facility] at [facility]. Patient had 1 round of CPR for 1 minute and reversal of the lexicon stress test agent and ROSC was obtained. Patient arrived and was placed on the monitor. Pads placed on the patient. She is alert and oriented x 4. No complaints other than some chest wall tenderness. Lidocaine patch will be administered. No obvious step-offs or deformities of t he chest wall. Vitals are within acceptable limits. Patient will be given heparin, started on IV fluids, and started on heparin. She was in agreement this plan. Spoke with Dr. Hector who is on-call for cardiology who is in agreement plan for admission to the ICU, patient will be made NPO. Requested patient be given aspirin, statin, as well as started on heparin. This was all completed. Laboratory studies returned unremarkable including undetectable troponin. EKG shows chronic bigeminy pattern for the patient. No evidence of ST segment elevation. Left bundle branch block is present. Chest x-ray unremarkable. Discussed with Dr. Castelan of ICU who accepted the admission. Discussed with Dr. Poe who accepted the admission. Patient was taken to cardiac catheterization. Undiagnosed new problem with uncertain prognosis? @ -No Drug Therapy requiring intensive monitoring for toxicity (Heparin, Nitro, Insulin, Cardizem)? @ -No Were any procedures done? @ -No Diagnosis/symptom? @ -Cardiac arrest Acute, or Chronic, or Acute on Chronic? @ -Acute Uncomplicated (without systemic symptoms) or Complicated (systemic symptoms)? @ -Complicated Side effects of treatment? @ -None Exacerbation, Progression, or Severe Exacerbation] @ -No Poses a threat to life or bodily function? @ -Yes - Lab Data Result diagrams: 07/31/24 09:32 07/31/24 09:32 Lab Results 07/31/24 07/31/24 07/31/24 Range/Units 09:23 09:32 09:32 WBC 7.15 (4.50-10.00) 10*3/uL RBC 4.19 (4.10-5.20) 10*6/uL Hgb 13.0 (12.0-15.0) g/dL Hct 38.6 (37.2-46.3) % MCV 92.1 (80.0-97.0) fL MCH 31.0 (27.0-32.0) pg MCHC 33.7 (32.0-37.0) g/dL Plt Count 232 (140-440) 10*3/uL MPV 10.6 (9.5-12.2) fL Immature Gran % (Auto) 0.3 % Neutrophils % 49.0 % Lymphocytes % 37.1 % Monocytes % 10.9 % Eosinophils % 2.1 % Basophils % 0.6 % Immature Gran # 0.02 (0.00-0.04) 10*3/uL Neutrophils # 3.51 (1.80-7.70) 10*3/uL Lymphocytes # 2.65 (0.90-5.00) 10*3/uL Monocytes # 0.78 (0.20-1.00) 10*3/uL Eosinophils # 0.15 (0.04-0.35) 10*3/uL Basophils # 0.04 (0.00-0.10) 10*3/uL PT 11.3 (10.0-12.5) sec INR 1.0 (<1.2) APTT 23.2 (22.0-30.0) sec Sodium (137-145) mmol/L Potassium (3.5-5.1) mmol/L Chloride (98-107) mmol/L Carbon Dioxide (22-30) mmol/L Anion Gap mmol/L BUN (7-17) mg/dL Creatinine (0.52-1.04) mg/dL Est GFR (CKD-EPI)AfAm (>60 ml/min/1.73 sqM) Est GFR (CKD-EPI)NonAf (>60 ml/min/1.73 sqM) Glucose (74-99) mg/dL POC Glucose (mg/dL) 147 H (70-110) mg/dL POC Glu Refractory Manager ID Brett Tiara Calcium (8.4-10.2) mg/dL Magnesium (1.6-2.3) mg/dL Total Bilirubin (0.2-1.3) mg/dL AST (14-36) U/L ALT (4-34) U/L Alkaline Phosphatase (38-126) U/L Troponin I (0.000-0.034) ng/mL NT-Pro-B Natriuret Pep pg/mL Total Protein (6.3-8.2) g/dL Albumin (3.5-5.0) g/dL 07/31/24 07/31/24 Range/Units 09:32 09:32 WBC (4.50-10.00) 10*3/uL RBC (4.10-5.20) 10*6/uL Hgb (12.0-15.0) g/dL Hct (37.2-46.3) % MCV (80.0-97.0) fL MCH (27.0-32.0) pg MCHC (32.0-37.0) g/dL Plt Count (140-440) 10*3/uL MPV (9.5-12.2) fL Immature Gran % (Auto) % Neutrophils % % Lymphocytes % % Monocytes % % Eosinophils % % Basophils % % Immature Gran # (0.00-0.04) 10*3/uL Neutrophils # (1.80-7.70) 10*3/uL Lymphocytes # (0.90-5.00) 10*3/uL Monocytes # (0.20-1.00) 10*3/uL Eosinophils # (0.04-0.35) 10*3/uL Basophils # (0.00-0.10) 10*3/uL PT (10.0-12.5) sec INR (<1.2) APTT (22.0-30.0) sec Sodium 141 (137-145) mmol/L Potassium 3.8 (3.5-5.1) mmol/L Chloride 107 (98-107) mmol/L Carbon Dioxide 25 (22-30) mmol/L Anion Gap 9 mmol/L BUN 35 H (7-17) mg/dL Creatinine 1.23 H (0.52-1.04) mg/dL Est GFR (CKD-EPI)AfAm 46 (>60 ml/min/1.73 sqM) Est GFR (CKD-EPI)NonAf 40 (>60 ml/min/1.73 sqM) Glucose 155 H (74-99) mg/dL POC Glucose (mg/dL) (70-110) mg/dL POC Glu Refractory Manager ID Calcium 9.9 (8.4-10.2) mg/dL Magnesium 1.8 (1.6-2.3) mg/dL Total Bilirubin 1.1 (0.2-1.3) mg/dL AST 29 (14-36) U/L ALT 23 (4-34) U/L Alkaline Phosphatase 87 (38-126) U/L Troponin I <0.012 (0.000-0.034) ng/mL NT-Pro-B Natriuret Pep 415 pg/mL Total Protein 7.2 (6.3-8.2) g/dL Albumin 4.4 (3.5-5.0) g/dL - EKG Data -: EKG Interpreted by Me EKG Comments: 12-lead Electrocardiogram Interpretation Note EKG was reviewed and interpreted by myself. 12-lead ECG performed at 0922 is interpreted by me as revealing sinus bradycardia with frequent PVCs, bigeminy at a rate of 56 beats per minute. Nichols appears normal. [place] interval is 169 ms, QRS durations 161 ms, QTc is 493 ms. Left bundle branch block morphology present.. There were no ST or T wave abnormalities to suggest myocardial ischemia or injury. R wave progression across the precordium was satisfactory. By my interpretation this EKG is non-diagnostic for acute ischemia. Critical Care Time Critical Care Time: Yes Total Critical Care Time: 32 Disposition Clinical Impression: Cardiac arrest Disposition: ADMITTED IP TO THIS HOSP Condition: Serious Time of Disposition: 10:50
[2024-07-31] MEDS: ASPIRIN 81 MG PO STA (09:31)
[2024-07-31 09:37] LABS: Basophils # (A) 0.04 10*3/uL (0.00-0.10); Basophils % (A) 0.6 %; Eosinophils # (A) 0.15 10*3/uL (0.04-0.35); Eosinophils % (A) 2.1 %; HCT 38.6 % (37.2-46.3); Lymphocytes # (A) 2.65 10*3/uL (0.90-5.00); Lymphocytes % (A) 37.1 %; MCHC 33.7 g/dL (32.0-37.0); MCV 92.1 fL (80.0-97.0); Mean Platelet Volume 10.6 fL (9.5-12.2); Monocytes # (A) 0.78 10*3/uL (0.20-1.00); Monocytes % (A) 10.9 %; Neutrophils # (A) 3.51 10*3/uL (1.80-7.70); Platelet Count 232 10*3/uL (140-440); RBC 4.19 10*6/uL (4.10-5.20); RDW 13.7 % (11.5-14.5); WBC 7.15 10*3/uL (4.50-10.00)
[2024-07-31] MEDS: ACETAMINOPHEN TAB 325 MG TAB PO STA (09:41)
[2024-07-31] MEDS: LIDOCAINE 4% PATCH TOPICAL ONE (09:42)
[2024-07-31 09:46] LABS: Partial Thromboplastin Time 23.2 sec (22.0-30.0); Prothrombin Time 11.3 sec (10.0-12.5)
[2024-07-31 09:48] LABS: ALT 23 U/L (4-34); AST 29 U/L (14-36); African American GFR (CKD) 46 (>60 ml/min/1.73 sqM); Albumin 4.4 g/dL (3.5-5.0); Alkaline Phosphatase 87 U/L (38-126); Anion Gap 9 mmol/L; Blood Urea Nitrogen 35 mg/dL (7-17); Calcium 9.9 mg/dL (8.4-10.2); Carbon Dioxide 25 mmol/L (22-30); Chloride 107 mmol/L (98-107); Glucose 155 mg/dL (74-99); Magnesium 1.8 mg/dL (1.6-2.3); Non-African American GFR(CKD) 40 (>60 ml/min/1.73 sqM); Potassium 3.8 mmol/L (3.5-5.1); Sodium 141 mmol/L (137-145); Total Bilirubin 1.1 mg/dL (0.2-1.3); Total Protein 7.2 g/dL (6.3-8.2)
[2024-07-31 09:56] LABS: NT-Pro-B-Type Natriuretic Pept 415 pg/mL
[2024-07-31] MEDS ORDERED: HEPARIN SODIUM 1,000 UN/ML (10ML VL) IV PRN (09:56)
--- NOTE | 2024-07-31 10:03 | XR ---
EXAMINATION TYPE: XR chest 1V portable DATE OF EXAM: 07/31/2024 9:45 AM COMPARISON: Chest radiographs from 10/24/2009 TECHNIQUE: XR chest 1V portable Portable AP radiograph of the chest. CLINICAL INDICATION:Female, 84 years old with history of chest pain; FINDINGS: Patient is rotated which limits evaluation. Lungs/Pleura: There is no evidence of pleural effusion, focal consolidation, or pneumothorax. Pulmonary vascularity: Unremarkable. Heart/mediastinum: Cardiomediastinal silhouette is nonenlarged. Musculoskeletal: No acute osseous pathology. Midline sternotomy wires are noted. IMPRESSION: No acute cardiopulmonary disease/process. [facility], , 07/31/2024 10:01 AM
[2024-07-31] MEDS: HEPARIN SODIUM 1,000 UN/ML (10ML VL) IV ONE (10:11)
[2024-07-31] MEDS: HEPARIN SOD,PORK IN 0.45% NACL 25,000 UNIT in 0.45% NACL 1 250ML.BAG IV SCH (10:12)
[2024-07-31] MEDS ORDERED: ALPRAZolam 0.25 MG TAB PO PRN (10:24)
[2024-07-31] MEDS ORDERED: NITROGLYCERIN SL TABS 0.4 MG TAB SUBLINGUAL PRN ×2 (10:24→12:58)
[2024-07-31] MEDS ORDERED: ALPRAZolam 0.5 MG TAB PO PRN (10:24)
[2024-07-31] MEDS ORDERED: NALOXONE 0.4 MG/ML 1 ML VIAL IV PRN (10:57)
[2024-07-31] MEDS: ASPIRIN 325 MG TAB PO STA (11:03)
[2024-07-31] MEDS: ATORVASTATIN 80 MG TAB PO STA ×2 (11:07→11:09)
--- NOTE | 2024-07-31 11:07 | P.CRDCN ---
History of Present Illness Consult date: 07/31/24 Reason for Consult (text): Cardiac arrest during stress test History of present illness: This is an 84-year-old female patient of Dr. Luna with past medical history of coronary artery disease status post CABG for one-vessel VG to RCA in 2019, hypertension, dyslipidemia, diabetes type 2, mitral valve regurgitation. Patient was undergoing Lexiscan Cardiolite stress test in the office today and went into asystole. She apparently started braiding down and then went unresponsive. Patient did have return of spontaneous Circulation. She was transferred to [facility] by EMS. She states that she had a little bit of chest pain prior to starting the stress test but is feeling fine now. She also gives history of having "coded" during open heart surgery and also during heart catheterization. Her previous CABG done in 2019 was done in [place]. Patient denies chest pain, shortness of breath, lightheadedness or dizziness, no palpitations at this time. Blood pressure 100/54, heart rate 59, pulse ox 94% on room air. Patient is seen today in the emergency center waiting for a bed on the cardiac stepdown unit. Patient has been started on IV fluids. -EKG: Sinus bradycardia left bundle branch block, frequent PVCs -Chest x-ray: No acute process -Laboratory studies: CBC, INR within normal limits. BUN 35 creatinine 1.23, tr oponin negative x 1. proBNP 415. -Home cardiac medications: Amlodipine 2.5 mg twice daily, aspirin 81 mg daily, atorvastatin 40 mg daily, Farxiga 5 mg daily, hydralazine 25 mg twice daily, isosorbide mononitrate 30 mg daily, losartan 100 mg daily, metoprolol tartrate 12.5 mg daily. -Echocardiogram performed in the office on 06/12/2024 revealed EF 50 to 55%, moderate mitral regurgitation, moderate tricuspid regurgitation, PASP 47 mmHg, trace to mild pulmonic regurgitation. -Cardiac catheterization performed 02/09/2022 revealed chronically occluded distal RCA at the bifurcation, patent SVG to the RCA, mild disease in the LAD and left circumflex, significant disease in the proximal robinson RCA. Recommendations were for medical therapy. Review Of Systems: At the time of my exam: CONSTITUTIONAL: Denies fever or chills. HEENT: Denies blurred vision, vision changes, or eye pain. Denies hemoptysis CARDIOVASCULAR: Denies chest pain. Denies orthopnea. Denies PND. Denies palpitations RESPIRATORY: Denies shortness of breath. GASTROINTESTINAL: Denies abdominal pain. Denies nausea or vomiting. HEMATOLOGIC: Denies bleeding disorders. GENITOURINARY: Denies any blood in urine. SKIN: Denies puritis. Denies rash. Physical examination: Gen: This is 84-year-old female in no acute distress VS: reviewed HEENT: Head is atraumatic, normocephalic. Pupils equal, round. Sclerae is anicteric. NECK: Supple. No JVD. LUNGS: Clear to auscultation. No wheezes or rhonchi. No intercostal retractions. HEART: Regular rate and rhythm. 2/6 systolic ejection murmur. ABDOMEN: Soft No tenderness. EXTREMITIES: No pedal edema. No calf tenderness. NEUROLOGICAL: Patient is awake, alert and oriented x3. Assessment: Asystole during Lexiscan stress test History of coronary artery disease with one-vessel VG to RCA in 2019 Known chronically occluded distal RCA at the bifurcation with significant disease in the proximal robinson RCA on medical therapy Hypertension Dyslipidemia Diabetes mellitus type 2 Moderate mitral regurgitation, moderate tricuspid regurgitation Plan: Resume patient's home cardiac medications with the following change Increase metoprolol tartrate to 25 mg twice daily Schedule patient for cardiac catheterization today with Dr. Luna Further recommendations to follow based upon clinical course Thank you kindly for this consultation. Nurse practitioner note has been reviewed, I agree with documented findings and plan of care. Patient was seen and examined. Past Medical History Past Medical History: Coronary Artery Disease (CAD), Diabetes Mellitus, Hyperlipidemia, Hypertension Additional Past Medical History / Comment(s): DIABETIC -DIET CONTROLLED History of Any Multi-Drug Resistant Organisms: None Reported Past Surgical History: Coronary Bypass/CABG, Heart Catheterization With Stent, Tubal Ligation Additional Past Surgical History / Comment(s): RT HEEL SPUR, Past Anesthesia/Blood Transfusion Reactions: No Reported Reaction Date of Last Stent Placement:: 01/27/06 Past Psychological History: No Psychological Hx Reported Smoking Status: Never smoker Past Alcohol Use History: Occasional Past Drug Use History: None Reported Medications and Allergies Home Medications Medication Instructions Recorded Confirmed Type Aspirin 81 mg PO HS 08/20/15 02/09/22 History Atorvastatin [Lipitor] 40 mg PO HS 08/20/15 02/09/22 History Losartan/Hydrochlorothiazide 1 each PO DAILY 08/20/15 02/09/22 History [Losartan-Hctz 100-25 mg Tab] Metoprolol Tartrate [Lopressor] 50 mg PO DAILY 08/20/15 02/09/22 History amLODIPine [Norvasc] 5 mg PO HS 08/20/15 02/09/22 History hydrALAZINE HCL 25 mg PO BID 6 Days #12 tablet 06/24/20 02/09/22 Rx Dapagliflozin Propanediol [Farxiga] 5 mg PO QAM 02/06/22 02/09/22 History amLODIPine [Norvasc] 2.5 mg PO QAM 02/06/22 02/09/22 History Allergies Allergy/AdvReac Type Severity Reaction Status Date / Time No Known Allergies Allergy Verified 07/31/24 09:22 Physical Exam Vitals: Vital Signs Temp Pulse Resp BP Pulse Ox 07/31/24 09:53 59 L 18 112/55 94 L 07/31/24 09:35 96.7 F L 07/31/24 09:22 59 L 14 123/46 96 Intake and Output 07/30/24 07/31/24 07/31/24 22:59 06:59 14:59 Other: Weight 63.503 kg Results 07/31/24 09:32 07/31/24 09:32 Cardiac Enzymes 07/31/24 07/31/24 Range/Units 09:32 09:32 AST 29 (14-36) U/L Troponin I <0.012 (0.000-0.034) ng/mL Coagulation 07/31/24 Range/Units 09:32 PT 11.3 (10.0-12.5) sec APTT 23.2 (22.0-30.0) sec CBC 07/31/24 Range/Units 09:32 WBC 7.15 (4.50-10.00) 10*3/uL RBC 4.19 (4.10-5.20) 10*6/uL Hgb 13.0 (12.0-15.0) g/dL Hct 38.6 (37.2-46.3) % Plt Count 232 (140-440) 10*3/uL Comprehensive Metabolic Panel 07/31/24 Range/Units 09:32 Sodium 141 (137-145) mmol/L Potassium 3.8 (3.5-5.1) mmol/L Chloride 107 (98-107) mmol/L Carbon Dioxide 25 (22-30) mmol/L BUN 35 H (7-17) mg/dL Creatinine 1.23 H (0.52-1.04) mg/dL Glucose 155 H (74-99) mg/dL Calcium 9.9 (8.4-10.2) mg/dL AST 29 (14-36) U/L ALT 23 (4-34) U/L Alkaline Phosphatase 87 (38-126) U/L Total Protein 7.2 (6.3-8.2) g/dL Albumin 4.4 (3.5-5.0) g/dL Current Medications Generic Name Dose Route Start Last Admin Trade Name Freq PRN Reason Stop Dose Admin Heparin Sodium (Porcine) 0 unit 07/31/24 09:56 Heparin Sodium 1,000 Un/Ml (10ml Vl) IV PER PROTOCOL PRN Low PTT Protocol Sodium Chloride 1,000 mls @ 999 mls/hr 07/31/24 09:23 07/31/24 09:29 Saline 0.9% IV 07/31/24 10:23 999 mls/hr .Q1H1M STA Administration Heparin Sodium/Sodium Chloride 250 mls @ 7.62 mls/hr 07/31/24 10:00 25,000 unit/ Sodium Chloride IV .Q24H SNEHAL Protocol 12 UNITS/KG/HR Intake and Output 07/30/24 07/31/24 07/31/24 22:59 06:59 14:59 Other: Weight 63.503 kg Patient Weight 08/01/24 06:59 Weight 63.503 kg 07/31/24 09:32 07/31/24 09:32
[2024-07-31] MEDS: METOPROLOL TARTRATE 25 MG TAB PO SCH (11:08)
--- NOTE | 2024-07-31 11:49 | P.CNPUL ---
History of Present Illness Consult date: 07/31/24 Requesting physician: Suki Poe Reason for consult: chest pain, other Chief complaint: ICU management. History of present illness: Pulmonary consult dated 07/31/2024. 84-year-old female seen in the emergency department today. She was over at the heart office, and she was scheduled to have a stress test. During the process, she apparently became unresponsive, had a cardiac arrest. She received chest compressions, for about 1 minute. There was return of spontaneous circulation. We were asked to see her in the emergency department, for a bed in the intensive care unit. We saw her in trauma room 1. She was on room air. She was receiving IV heparin. She was stable and back to her baseline. She was scheduled to go for heart catheterization. Only complaint was chest pain, from chest compressions. She has a history of CAD, previous bypass, stents, diabetes, hypertension, and hyperlipidemia. White count was 7.2, hemoglobin 13, hematocrit 39, platelet count was normal. Coagulation studies were normal. Sodium 141, potassium 3.8, chloride 107, CO2 25, BUN 35, and creatinine 1.23. Glucose was 155. Troponin was less than 0.012. Chest x-ray was normal. Review of Systems REVIEW OF SYSTEMS: CONSTITUTIONAL: [Negative.] NEUROLOGIC: [ Negative.] HEENT: [ Negative.] CARDIAC: [id number] cardiac arrest, during a stress test. PULMONARY: [Negative.] GI: [Negative.] : [Negative.] RHEUMATOLOGIC: [ Negative.] IMMUNOLOGIC: [ Negative.] ENDOCRINE: [Negative. ] DERMATOLOGIC: [Negative.] Past Medical History Past Medical History: Coronary Artery Disease (CAD), Diabetes Mellitus, Hyperlipidemia, Hypertension Additional Past Medical History / Comment(s): DIABETIC -DIET CONTROLLED History of Any Multi-Drug Resistant Organisms: None Reported Past Surgical History: Coronary Bypass/CABG, Heart Catheterization With Stent, T ubal Ligation Additional Past Surgical History / Comment(s): RT HEEL SPUR, Past Anesthesia/Blood Transfusion Reactions: No Reported Reaction Date of Last Stent Placement:: 01/27/06 Past Psychological History: No Psychological Hx Reported Smoking Status: Never smoker Past Alcohol Use History: Occasional Past Drug Use History: None Reported Medications and Allergies Home Medications Medication Instructions Recorded Confirmed Type Aspirin 81 mg PO HS 08/20/15 07/31/24 History Atorvastatin [Lipitor] 40 mg PO HS 08/20/15 07/31/24 History Losartan/Hydrochlorothiazide 1 tab PO DAILY 08/20/15 07/31/24 History [Losartan-Hctz 100-25 mg Tab] amLODIPine [Norvasc] 5 mg PO DAILY 08/20/15 07/31/24 History hydrALAZINE HCL 25 mg PO BID 6 Days #12 tablet 06/24/20 07/31/24 Rx Dapagliflozin Propanediol [Farxiga] 5 mg PO DAILY 02/06/22 07/31/24 History Doxycycline Hyclate 100 mg PO BID 07/31/24 07/31/24 History Isosorbide Mononitrate ER [Imdur] 30 mg PO DAILY 07/31/24 07/31/24 History Metoprolol Tartrate [Lopressor] 25 mg PO HS 07/31/24 07/31/24 History Multivitamins, Thera [Multivitamin 1 tab PO DAILY 07/31/24 07/31/24 History (formulary)] Allergies Allergy/AdvReac Type Severity Reaction Status Date / Time No Known Allergies Allergy Verified 07/31/24 11:17 Physical Exam Osteopathic Statement: *. No significant issues noted on an osteopathic structural exam other than those noted in the History and Physical/Consult. Vitals: Vital Signs Temp Pulse Resp BP Pulse Ox 07/31/24 11:21 97.4 F L 61 18 120/54 94 L 07/31/24 10:54 59 L 17 100/54 94 L 07/31/24 10:15 61 16 115/48 95 07/31/24 09:53 59 L 18 112/55 94 L 07/31/24 09:35 96.7 F L 07/31/24 09:22 59 L 14 123/46 96 Intake and Output 07/30/24 07/31/24 07/31/24 22:59 06:59 14:59 Other: Weight 63.503 kg No acute distress, oriented 3. HEENT examination is grossly unremarkable. Mucous membranes are moist. No oral lesions. Neck supple. Full range of motion. No adenopathy thyromegaly or neck vein distention. Cardiovascular examination reveals regular rhythm rate. S1-S2 normal. No S3 or S4. No discernible murmur noted. Lungs reveal clear breath sounds. Breath sounds are equal bilaterally. No adventitious lung sounds including wheezes rhonchi or crackles. Abdomen soft bowel sounds are heard. No masses or tenderness. Extremities are intact. No cyanosis clubbing or edema. Skin is without rash or lesion. Neurologic examination is brief but nonfocal. Results - Laboratory Findings CBC and BMP: 07/31/24 09:32 07/31/24 09:32 PT/INR, D-dimer PT 11.3 sec (10.0-12.5) 07/31/24 09:32 INR 1.0 (<1.2) 07/31/24 09:32 Abnormal lab findings: Abnormal Labs 07/31/24 07/31/24 09:23 09:32 BUN 35 H Creatinine 1.23 H Glucose 155 H POC Glucose (mg/dL) 147 H - Diagnostic Findings Chest x-ray: image reviewed Assessment and Plan Assessment: S/P cardiac arrest, during a stress test, with 1 minute of cardiopulmonary resuscitation, and eventual return of spontaneous circulation. History of CAD, with previous stenting, and CABG. History of diabetes mellitus. History of hypertension. History of hyperlipidemia. Plan: Plan dated July 31, 2024. The patient is acutely, down in the emergency department. We were called to come see her, by one of the ER physicians, for possible placement in the intensive care unit. The patient is currently on room air. She is receiving IV heparin. The patient had a brief episode of asystole, with cardiac arrest, and about a minutes worth of cardiopulmonary resuscitation. The patient will likely end up going to the catheterization lab, later today. Additional recommendations and suggestions are forthcoming. Prognosis is guarded. She does have a history of well-documented CAD, with previous stenting, and CABG. She also has a history of hypertension, diabetes, and hyperlipidemia. All labs, x-rays, and medications are reviewed. We will continue to follow. Prognosis is guarded. Dictation was produced using [employer] software. Please excuse any grammatical, word or spelling errors. Time with Patient: Greater than 30
[2024-07-31] MEDS: fentaNYL (PF) 50 MCG/1 ML VIAL IVP ONE (11:55)
[2024-07-31] MEDS: SODIUM CHLORIDE 0.9% 1,000 ML IV ONE (11:55)
[2024-07-31] MEDS: LIDOCAINE 1% INJ 10MG/ML (20 ML MDV) SQ ONE (11:58)
[2024-07-31] MEDS: MIDAZOLAM 2 MG/2 ML VIAL IVP ONE (11:58)
[2024-07-31] MEDS: VERAPAMIL SYRINGE (5 MG/10 ML) INTRAARTER ONE (12:00)
[2024-07-31] MEDS: HEPARIN SODIUM 1,000 UN/ML (10ML VL) IVP ONE (12:03)
[2024-07-31] MEDS: HEPARIN SODIUM,PORCINE 10,000 UNIT in SODIUM CHLORIDE 0.9% 1,000 ML IRRIGATION PRN (12:04)
[2024-07-31] MEDS: HEPARIN SODIUM,PORCINE (1 ML) 2,500 UNIT in SODIUM CHLORIDE 0.9% 250 ML IRRIGATION PRN (12:05)
[2024-07-31] MEDS: IOPAMIDOL-370 100ML BTL INJ ONE ×2 (12:30→12:44)
[2024-07-31] MEDS: CLOPIDOGREL 75 MG TAB PO ONE (12:31)
[2024-07-31] MEDS ORDERED: ZOLPIDEM 5 MG TAB PO PRN (12:58)
[2024-07-31] MEDS ORDERED: ATROPINE SULFATE 0.1 MG/ML 10ML SYRINGE IV PRN (12:58)
[2024-07-31] MEDS ORDERED: MAG HYDROX/AL HYDROX/SIMETH 30 ML CUP PO PRN (12:58)
[2024-07-31] MEDS ORDERED: RX INFO: IV CONTRAST WAS GIVEN 1 EACH MISC MISCELLANE PRN (12:58)
[2024-07-31 13:05] LABS: Glucose,Whole Blood 118 mg/dL (70-110)
[2024-07-31] MEDS: SODIUM CHLORIDE 0.9% 1,000 ML in EMPTY BAG 1 BAG IV SCH (13:21)
--- NOTE | 2024-07-31 13:25 | P.CARDCATH ---
Date of Procedure: 07/31/24 Description of Procedure: Cardiac Catheterization: The patient is an 84-year-old female with a known history of CAD, status post PCI and subsequent CABG with SVG to the RCA who has been complaining of chest discomfort and underwent a Lexiscan nuclear imaging this morning when she had an episode of asystole requiring brief CPR with the injection of Lexiscan. Because of her event and recurrent chest pain further evaluation was recommended. Recommendations were made regarding cardiac catheterization, the risks and the complications were discussed with the patient who is in full understanding and agreement. Procedure Description: Patient was brought to cardiac cath lab radiology technologist in fasting semi-sedated state after receiving Fentanyl and Benadryl achieiving moderate conscious sedated state. Using Xylocaine Anesthesia and modified Seldinger technique, a 6-Tajik sheath was introduced in the left radial artery . Subsequently, selective coronary angiography was performed using a 5-Tajik 4 bend Christin catheter. Multiple views of the coronary artery including hemiaxial views were obtained. The right Christin was used to cannulate the SVG to the PDA. The left Christin catheter was used to cross the aortic valve and LVEDP was calculated. PCI: After removing the catheters a 6 Tajik CLS 3.5 guiding catheter was introduced into the system and after cannulating the left main and Omni wire was positioned in the mid LAD and IFR was measured at 0.87. At that time a 2.5 x 12 mm trek balloon was advanced and 1 inflation at 8 ny was done and after removing the balloon a [place] eye IVUS catheter was introduced and imaging was performed that revealed a proximal intimal disease in the LAD with a calcified lesion in the mid lesion was mildly calcified and measuring distally at 3.0-3.5 in diameter. After removing the catheter a 3.0 x 18 mm Xience mitali point was advanced and deployed at 16 ny. Repeat IVUS imaging was performed and revealed good opening of the stent with mild under deployment in the midsegment. A 3.25 x 12 mm NC trek balloon was advanced and 1 inflation at 10 ny was done. Subseq uently the wire was removed images were obtained and revealed stable successful stenting. Following that, catheter and sheath were removed. Hemostasis was obtained with deployment of vascular band . There was no immediate complication. Patient was returned to room in stable condition. Of note, the patient received a total of 5500 units of intravenous heparin as well as intra-arterial verapamil. She received an oral loading dose of clopidogrel. She had no significant EKG changes or chest discomfort with the inflations. Findings: Left main: This is a large size vessel, bifurcating into LAD and left circumflex, left main has no obstructive disease. LAD: This is a large size vessel, reaching to the apex with a wraparound apex segment giving rise to a moderately sized diagonal branch in the proximal segment. The proximal LAD is mildly disease with 30% the mid LAD has a 60 to 70% plaque. The distal LAD through the apex and through the septal coating inspector gave collaterals to the PDA. Left circumflex: This is a large nondominant vessel giving rise to a large obtuse marginal branch. The proximal left circumflex has a 20 to 30% plaque, the rest of the vessel has no high-grade stenosis RCA: This is a dominant vessel the proximal RCA shortly after the ostium has an 80% stenosis in the vessel is totally occluded in the distal segment prior to the bifurcation with retrograde filling of the SVG. SVG to the RCA: The proximal distal anastomotic site are patent the flow in the SVG is brisk the SVG does not feed the PDA Left Ventriculogram: Not performed Hemodynamics: There was no gradient across the aortic valve, LVEDP was 12-14 mmHg Conclusion: 1. Chronically occluded distal RCA with [id number] collaterals to the PDA 2. Patent SVG to the distal RCA with no flow into the PDA 3. Mild disease in the proximal left circumflex 4. Moderate disease in the mid LAD with abnormal IFR of 0.87 5. Successful stenting of the mid LAD with reduction stenosis from 70% to less than 5% with IVUS imaging and KRIS-3 flow Recommendations: The patient will continue on aspirin and clopidogrel for 6 months in addition to aggressive coronary risk modification, attempting to maintain LDL below 70 mg/dL. The findings and the recommendations were discussed with the patient and the family and they were in full understanding and agreement. Duration of sedation is 44 minutes.
[2024-07-31] MEDS: MAGNESIUM SULFATE-D5W PMX 1 GM in DEXTROSE/WATER 1 100ML.BAG IVPB ONE (14:27)
[2024-07-31 17:50] LABS: Appearance,Urine Clear (Clear); Bilirubin,Urine Negative (Negative); Blood,Urine Negative (Negative); Color,Urine Colorless; Glucose,Urine (UA) 4+ (Negative); Ketones,Urine Negative (Negative); Leukocyte Esterase,Urine Negative (Negative); Nitrite,Urine Negative (Negative); PH, Urine 6.5 (5.0-8.0); Protein,Urine Negative (Negative); Urobilinogen,Urine <2.0 mg/dL (<2.0)
[2024-07-31 18:01] LABS: Specific Gravity,Urine 1.048 (1.001-1.035)
[2024-07-31] MEDS: ATORVASTATIN 40 MG TAB PO SCH (20:15)
[2024-07-31] MEDS: METOPROLOL TARTRATE 12.5 MG TAB PO SCH (20:16)
[2024-08-01 06:40] LABS: ALT 21 U/L (4-34); AST 30 U/L (14-36); African American GFR (CKD) 52 (>60 ml/min/1.73 sqM); Albumin 3.8 g/dL (3.5-5.0); Alkaline Phosphatase 71 U/L (38-126); Anion Gap 8 mmol/L; Blood Urea Nitrogen 29 mg/dL (7-17); Calcium 9.4 mg/dL (8.4-10.2); Carbon Dioxide 23 mmol/L (22-30); Chloride 109 mmol/L (98-107); Glucose 79 mg/dL (74-99); Non-African American GFR(CKD) 45 (>60 ml/min/1.73 sqM); Potassium 3.9 mmol/L (3.5-5.1); Sodium 140 mmol/L (137-145); Total Bilirubin 0.8 mg/dL (0.2-1.3); Total Protein 6.3 g/dL (6.3-8.2)
--- NOTE | 2024-08-01 06:41 | P.HPIM ---
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, in the emergency department patient was doing fine, awake and alert and oriented x 3, patient chest x-ray did not show evidence of acute abnormalities, she did have a brief episode of CPR, because of the presentation she was admitted to the ICU, prior to that the patient underwent left heart catheterization through the left radial artery and that showed evidence of 60 to 70% stenosis of the mid LAD with abnormal IFR of 0.87, status post PCI with a stent placement, also he was found that the patient has left main free of disease, left circumflex artery free of disease as well, there was also a totally occluded distal RCA with a patent graft SVG to the RCA not filling the PDA the PDA is getting collateral from the LAD, patient was started back on aspirin, Plavix, and she was admitted back to the ICU, her EKG showing evidence of bigeminy, her magnesium level was 1.8, I spoke with the nursing staff about adding magnesium sulfate 1 g IV piggyback x 1, monitor the patient in the ICU for the next 24 hours, hopefully she will be able to be discharged home in the next 24 hours. REVIEW OF SYSTEMS: Constitutional: No documented fever, no chills, no night sweats. No weight change. No weakness, fatigue or lethargy. No daytime sleepiness. EENT: No headache. No blurred vision or double vision, no loss of vision. No loss of Hearing, no ringing in the ears, no dizziness. No nasal drainage or congestion. No epistaxis. No sore throat. Lungs: positive for shortness of breath, no cough, no sputum production. No wheezing. Reports dyspnea with activity. Cardiovascular: positive for chest pain, no lower extremity edema. No palpitations. No paroxysmal nocturnal dyspnea. No orthopnea. No lightheadedness or dizziness. No syncopal episodes. Abdominal: Reports no abdominal pain. No nausea, vomiting. No diarrhea. No constipation. No bloody or tarry stools reports loss of appetite. Genitourinary: No dysuria, increased frequency, urgency. No urinary retention. Musculoskeletal: No myalgias. No muscle weakness, no gait dysfunction, no frequent falls. No back pain. No neck pain. Integumentary: No wounds, no lesions. No rash or pruritus. No unusual bruising. No change in hair or nails. Neurologic: No aphasia. No facial droop. No change in mentation. No head injury. No headache. No paralysis. No paresthesia. Psychiatric: No depression. positive for anxiety. No mood swings. Endocrine: No abnormal blood sugars. No weight change. PAST MEDICAL HISTORY: Hypertension and hypertensive cardiovascular disease. Mixed hyperlipidemia. Prediabetes. Chronic kidney disease stage IIIa. Coronary artery disease status post CABG with SVG to the RCA in 2019 and PCI of the L AD today. 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 Osteoarthritis. PAST SURGICAL HISTORY: Bilateral cataract surgery. Heel spur surgery. Tubal ligation. Right leg SCC excision Left heart catheterization with PCI and stent placement CABG with SVG to RCA 2019 Left heart catheterization 02/15/2022. Left heart catheterization with PCI of the mid LAD for 60 to 70% plaque with abnormal IFR 0.87 SOCIAL HISTORY: Patient is a lifelong non-smoker, she denies any alcohol ingestion, she denies any drug use or abuse, she does not use any recreational drugs or marijuana. FAMILY HISTORY: Father at the age of 80 from parkinsonism and mother at the age of 92 from Alzheimer dementia, patient has 2 sisters 1 as well and the other 1 with history of CVA patient has 4 sons 3 are well and 1 with an DC at the age of 50 PHYSICAL EXAMINATION: General: 84-year-old female laying down in bed in no apparent distress HEENT: Head is atraumatic, normocephalic, pupils were equal round reactive to light and recommendation, extraocular muscle movement were intact, sclera nonicteric, conjunctivae were pale, mucous membranes of the mouth are somewhat dry. Neck: Supple, no JVP, normal carotid upstroke bilaterally, no lymphadenopathy. Chest: Decreased breath sounds at the bases, few rhonchi, no expiratory wheezes, no chest wall tenderness, no intercostal retractions. Heart: First heart sound is normal, second heart sounds normal there is systolic ejection murmur 2/6 located in the left sternal border Abdomen: Soft, nontender, nondistended, positive bowel sounds. Extremities: There is no edema no calf tenderness DP +2 bilaterally. Neurologic examination: Patient is awake alert and oriented x3, cranial nerves II-12 appear grossly intact, muscle power were 5 out of 5 in upper extremities a nd 5 out of 5 in bilateral lower extremities, deep tendon reflexes normal bilaterally. ASSESSMENT AND PLAN: 1. Asystole post Lexiscan infusion during stress testing with a brief CPR status post left heart catheterization that showed 60 to 70% plaque of the mid LAD with abnormal IFR of 0.87 status post successful stenting continue aspirin 81 mg once every day, clopidogrel 75 mg once every day, continue with atorvastatin 40 mg once every day, continue with metoprolol 12.5 mg orally twice every day, monitor the patient in the ICU for the next 24 hours, increase activity in the next 24 hours, hopefully she will be discharged home tomorrow morning. 2. Bigeminy in a patient with underlying heart disease. Continue metoprolol 12.5 mg orally twice every day, add magnesium 1 g of piggyback times 1 repeat magnesium level tomorrow morning. 3. Hypertension and hypertensive cardiovascular disease. Continue patient on metoprolol 12.5 mg orally twice every day, hold hydralazine 25 mg orally twice every day, hold amlodipine for now. 4. Mixed hyperlipidemia. Continue patient on atorvastatin 40 mg once every day, monitor lipid panel, keep LDL 55-70. 5. Prediabetes. Continue patient on Farxiga 10 mg orally once every day. 6. Chronic kidney disease stage IIIa. Continue patient on IV fluid resuscitation in the form of normal saline at 75 cc an hour, repeat CMP tomorrow morning, avoid nephrotoxins, continue Farxiga 10 mg orally once every day. 7. 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 Stable at this time. 8. Osteoarthritis. Stable at this time 9. DVT prophylaxis. Heparin 5000 unit subcutaneously every 12 hours. 10. GI prophylaxis. Continue patient on Protonix 40 mg orally once every day. 11. Admit to inpatient. Estimated length of stay 2 midnights. 12. Full code. Past Medical History Past Medical History: Coronary Artery Disease (CAD), Diabetes Mellitus, Hyperlipidemia, Hypertension Additional Past Medical History / Comment(s): DIABETIC -DIET CONTROLLED History of Any Multi-Drug Resistant Organisms: None Reported Past Surgical History: Coronary Bypass/CABG, Heart Catheterization With Stent, Tubal Ligation Additional Past Surgical History / Comment(s): RT HEEL SPUR, Past Anesthesia/Blood Transfusion Reactions: No Reported Reaction Date of Last Stent Placement:: 01/27/06 Past Psychological History: No Psychological Hx Reported Smoking Status: Never smoker Past Alcohol Use History: Occasional Past Drug Use History: None Reported Medications and Allergies Home Medications Medication Instructions Recorded Confirmed Type Aspirin 81 mg PO HS 08/20/15 07/31/24 History Atorvastatin [Lipitor] 40 mg PO HS 08/20/15 07/31/24 History Losartan/Hydrochlorothiazide 1 tab PO DAILY 08/20/15 07/31/24 History [Losartan-Hctz 100-25 mg Tab] amLODIPine [Norvasc] 5 mg PO DAILY 08/20/15 07/31/24 History hydrALAZINE HCL 25 mg PO BID 6 Days #12 tablet 06/24/20 07/31/24 Rx Dapagliflozin Propanediol [Farxiga] 5 mg PO DAILY 02/06/22 07/31/24 History Doxycycline Hyclate 100 mg PO BID 07/31/24 07/31/24 History Isosorbide Mononitrate ER [Imdur] 30 mg PO DAILY 07/31/24 07/31/24 History Metoprolol Tartrate [Lopressor] 25 mg PO HS 07/31/24 07/31/24 History Multivitamins, Thera [Multivitamin 1 tab PO DAILY 07/31/24 07/31/24 History (formulary)] Allergies Allergy/AdvReac Type Severity Reaction Status Date / Time No Known Allergies Allergy Verified 07/31/24 11:17 Physical Exam Vitals: Vital Signs Temp Pulse Resp BP Pulse Ox 07/31/24 11:21 97.4 F L 61 18 120/54 94 L 07/31/24 10:54 59 L 17 100/54 94 L 07/31/24 10:15 61 16 115/48 95 07/31/24 09:53 59 L 18 112/55 94 L 07/31/24 09:35 96.7 F L 07/31/24 09:22 59 L 14 123/46 96 Intake and Output 07/30/24 07/31/24 07/31/24 22:59 06:59 14:59 Intake Total 700 Balance 700 Intake: IV 700 Other: Weight 63.503 kg Results CBC & Chem 7: 07/31/24 09:32 08/01/24 05:08 Labs: Abnormal Lab Results - Last 24 Hours (Table) 07/31/24 07/31/24 07/31/24 Range/Units 09:23 09:32 13:03 BUN 35 H (7-17) mg/dL Creatinine 1.23 H (0.52-1.04) mg/dL Glucose 155 H (74-99) mg/dL POC Glucose (mg/dL) 147 H 118 H (70-110) mg/dL
[2024-08-01] MEDS: SODIUM CHLORIDE 0.9% 500 ML 500 ML IV SCH (06:59)
[2024-08-01] MEDS: POTASSIUM CHLORIDE 10 MEQ in WATER FOR INJECTION 1 100ML.BAG IVPB SCH (07:41)
[2024-08-01] MEDS: DOXYCYCLINE 100 MG TABLET PO SCH (08:11)
[2024-08-01] MEDS: MULTIVITAMINS, THERA 1 EACH TAB PO SCH (08:11)
[2024-08-01] MEDS: CLOPIDOGREL 75 MG TAB PO SCH (08:11)
[2024-08-01] MEDS: DAPAGLIFLOZIN PROPANEDIOL 10 MG TABLET PO SCH (08:11)
[2024-08-01] MEDS: ISOSORBIDE MONONITRATE ER 30 MG TAB.ER.24H PO SCH (08:11)
[2024-08-01] MEDS: ASPIRIN 81 MG PO SCH (08:11)
[2024-08-01] MEDS: HEPARIN SODIUM,PORCINE 5,000 UNIT/ML 1 ML VIAL SQ SCH (08:11)
[2024-08-01] MEDS ORDERED: DAPAGLIFLOZIN PROPANEDIOL 5 MG TABLET PO SCH (09:00)
--- NOTE | 2024-08-01 10:32 | P.PN ---
Subjective Progress Note Date: 08/01/24 84-year-old female history of CAD s/p stent and CABG, diabetes, hypertension, and hyperlipidemia seen in the emergency department for s/p cardiac arrest, consult for ICU management. She was over at the heart office, and she was scheduled to have a stress test. During the process, she apparently became un responsive, had a cardiac arrest. She received chest compressions, for about 1 minute. There was return of spontaneous circulation was acheived. On evaluation in the emergency department, she was stable and on room air. She was receiving IV heparin. Cardiology has scheduled her to go for heart catheterization. Only complaint was chest pain, from chest compressions. White count was 7.2, hemoglobin 13, hematocrit 39, platelet count was normal. Coagulation studies were normal. Sodium 141, potassium 3.8, chloride 107, CO2 25, BUN 35, and creatinine 1.23. Glucose was 155. Troponin was less than 0.012. Chest x-ray was normal. 08/01/2024 patient seen and examined at bedside. Patient currently in the ICU. No acute events overnight. Patient complaining of chest ache from chest compressions. Denied chest pain, shortness of breath, palpitations, lightheadedness, dizziness, changes in vision. Labs today: Sodium 140, potassium 3.9, bicarb 23, calcium 9.4, BUN 29, creatinine 1.12. Liver function tests within normal levels. EKG today showed sinus bradycardia with a rate of 50 bpm, prolonged QRS at 138 MS, normal [place] interval, intraventricular delay noted at V3, no ST-T changes, QTc 461 MS. Review of systems: Pertinent positives and negatives as discussed in HPI, a complete review of systems was performed and all other systems are negative. Physical examination: Vital signs reviewed General: non toxic, no distress, appears as stated age, on room air Derm: no unusual rashes/lesions, warm Head: atraumatic, normocephalic, symmetric Eyes: EOMI, anicteric sclera, pupils equal round reactive to light ENT: Nose and ears atraumatic Neck: No cervical lymphadenopathy, trachea midline, supple Mouth: no lip lesion, mucus membranes moist Cardiovascular: S1S2 bradycardic, no murmur Lungs: CTA bilateral, no rhonchi, no rales, no accessory muscle use Abdominal: soft, nontender to palpation, no guarding Ext: muscle strength 5 out of 5 in all 4 extremities grossly, no gross muscle atrophy, no contractures, positive dorsalis pedis pulse bilateral, no edema Neuro: CN II-XI grossly intact, no gross focal neuro deficits Psych: Alert and oriented x3, appropriate affect and mood Assessment: Cardiac arrest, status post CPR with ROSC after 1 minute, with 1 minute of cardiopulmonary resuscitation CAD with history of stent and CABG, status post catheterization and stent placement of the mid LAD Sinus bradycardia, asymptomatic CKD stage IIIa History of diabetes mellitus. History of hypertension. History of hyperlipidemia. Plan: Continue with maximal medical therapy with Plavix 75 mg daily, aspirin 81 mg daily, and atorvastatin 40 mg daily Monitor electrolytes and renal function Continue cardiac monitoring Supplemental oxygenation as needed Echocardiogram pending DVT prophylaxis: Heparin SQ every 12 hours GI prophylaxis: Protonix 40 mg once daily Prognosis: Guarded due to cardiac arrest and patient's extensive cardiac history. Has been downgraded to cardiac stepdown unit. Will continue to monitor Lainey Quintanilla MD PGY-1/Literacy Tutor Dictation was produced using [employer] dictation software. please excuse any grammatical, word or spelling errors. Objective - Vital Signs Vital signs: Vital Signs Temp 97.7 F 08/01/24 04:00 Pulse 56 L 08/01/24 07:00 Resp 16 08/01/24 07:00 BP 134/57 08/01/24 07:00 Pulse Ox 97 08/01/24 07:00 FiO2 Intake & Output 07/31/24 08/01/24 08/01/24 18:59 06:59 18:59 Intake Total 1429 Output Total 0 1100 200 Balance 1429 -1100 -200 Weight 63.503 kg 58 kg Intake: IV 889 Sodium Chloride 0.9% 1, 189 000 ml @ 0 mls/hr IV .[facility] Rx#:[id number] Oral 540 Output: Urine 0 1100 200 Other: Voiding Method Bedpan Bedside Commode # Voids 1 1 1 - Labs CBC & Chem 7: 07/31/24 09:32 08/01/24 05:08 Labs: Abnormal Lab Results - Last 24 Hours (Table) 07/31/24 07/31/24 07/31/24 Range/Units 09:23 09:32 13:03 Chloride (98-107) mmol/L BUN 35 H (7-17) mg/dL Creatinine 1.23 H (0.52-1.04) mg/dL Glucose 155 H (74-99) mg/dL POC Glucose (mg/dL) 147 H 118 H (70-110) mg/dL Ur Specific [place] (1.001-1.035) Urine Glucose (UA) (Negative) 07/31/24 08/01/24 Range/Units 17:38 05:08 Chloride 109 H (98-107) mmol/L BUN 29 H (7-17) mg/dL Creatinine 1.12 H (0.52-1.04) mg/dL Glucose (74-99) mg/dL POC Glucose (mg/dL) (70-110) mg/dL Ur Specific [place] 1.048 H (1.001-1.035) Urine Glucose (UA) 4+ H (Negative)
--- NOTE | 2024-08-01 10:36 | CA ---
Transthoracic Echo Report Name: Yulisa Mathew Age: 84 Gender: F : 1940 Exam Date: 08/01/2024 08:05 Exam Location: [facility] Ht (in): 61 Wt (lb): 127 Ordering Physician: Hector Luna MD ([id number]) Attending/Referring Phys: [employer] Professor Fritz Capone RDCS Procedure CPT: Indications: eval. left ventr. functin Cardiac Hx: CAD, HTN, CKD, CABG, Stent Technical Quality: Good Contrast 1: Total Dose (mL): Contrast 2: Total Dose (mL): MEASUREMENTS (Male / Female) Normal Values 2D ECHO LV Diastolic Diameter PLAX 5.0 cm 4.2 - 5.9 / 3.9 - 5.3 cm LV Systolic Diameter PLAX 3.4 cm IVS Diastolic Thickness 0.8 cm 0.6 - 1.0 / 0.6 - 0.9 cm LVPW Diastolic Thickness 0.8 cm 0.6 - 1.0 / 0.6 - 0.9 cm LV Relative Wall Thickness 0.3 RV Internal Dim ED PLAX 3.4 cm LVOT Diameter 1.4 cm LA Systolic Diameter LX 4.2 cm 3.0 - 4.0 / 2.7 - 3.8 cm LV Diastolic Volume MOD BP 76.7 cm??? 67 - 155 / 56 - 104 cm??? LV Systolic Volume MOD BP 35.4 cm??? 22 - 58 / 19 - 49 cm??? LV Ejection Fraction MOD BP 53.9 % >= 55 % LV Cardiac Index MOD BP 1485.0 cm???/min???m??? LV Diastolic Volume MOD 4C 59.9 cm??? LV Systolic Volume MOD 4C 21.9 cm??? LV Ejection Fraction MOD 4C 63.5 % LV Cardiac Index MOD 4C 1367.1 cm???/min???m??? LV Diastolic Length 4C 6.8 cm LV Systolic Length 4C 5.2 cm LV Diastolic Volume MOD 2C 94.1 cm??? LV Systolic Volume MOD 2C 47.4 cm??? LV Ejection Fraction MOD 2C 49.7 % LV Cardiac Index MOD 2C 1681.0 cm???/min???m??? LV Diastolic Length 2C 7.1 cm LV Systolic Length 2C 6.3 cm LA Volume 104.6 cm??? 18 - 58 / 22 - 52 cm??? LA Volume Index 66.0 cm???/m??? 16 - 28 cm???/m??? DOPPLER MV Area PHT 3.5 cm??? Mitral E Point Velocity 98.2 cm/s Mitral A Point Velocity 99.3 cm/s Mitral E to A Ratio 1.0 MV Deceleration Time 218.1 ms TR Peak Velocity 289.6 cm/s TR Peak Gradient 33.6 mmHg Right Atrial Pressure 10.0 mmHg Pulmonary Artery Systolic Pressu 43.6 mmHg Right Ventricular Systolic Press 43.6 mmHg FINDINGS Left Ventricle Left ventricular ejection fraction is estimated at 55 %. Mildly decreased left ventricular ejection fraction. No obvious regional wall motion abnormalities. Right Ventricle Normal right ventricular size. Mild pulmonary hypertension. Right ventricular systolic pressure estimated at 44 mm hg. Right Atrium Normal right atrial size. Left Atrium Mildly increased left atrial diameter. Severely increased left atrial volume. Moderately increased left atrial area. Mitral Valve Mitral valve thickened. No mitral stenosis. Moderate mitral regurgitation. Aortic Valve Trileaflet aortic valve.thickened aortic valve without stenosis. No aortic stenosis. No aortic regurgitation. Tricuspid Valve Structurally normal tricuspid valve. No tricuspid stenosis. Moderate tricuspid regurgitation. Pulmonic Valve Structurally normal pulmonic valve. No pulmonic stenosis. Trace pulmonic regurgitation. Pericardium Minimal pericardial effusion (normal variant). Aorta Normal size aortic root and proximal ascending aorta. CONCLUSIONS LV size and systolic function is fairly well-preserved. There is moderate mitral and tricuspid regurgitation. Mild to moderate pulmonary hypertension. No significant pericardial effusion probable fat pad or a trivial effusion noted Previewed by: Dr. Moris Martin MD (Electronically Signed) Final Date: 01 Aug 2024 10:35
--- NOTE | 2024-08-01 12:33 | P.PN ---
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, and she underwent Lexiscan Cardiolite stress test, after the infusion of the Lexiscan she had a brief episode of asystole requiring brief CPR, EMS was contacted and the patient was transferred to the emergency department at [facility] appointment, in the emergency department patient was doing fine, awake and alert and oriented x 3, patient chest x-ray did not show evidence of acute abnormalities, she did have a brief episode of CPR, because of the presentation she was admitted to the ICU, prior to that the patient underwent left heart catheterization through the left radial artery and that showed evidence of 60 to 70% stenosis of the mid LAD with abnormal IFR of 0.87, status post PCI with a stent placement, also he was found that the patient has left main free of disease, left circumflex artery free of disease as well, there was also a totally occluded distal RCA with a patent graft SVG to the RCA not filling the PDA the PDA is getting collateral from the LAD, patient was started back on aspirin, Plavix, and she was admitted back to the ICU, her EKG showing evidence of bigeminy, her magnesium level was 1.8, I spoke with the nursing staff about adding magnesium sulfate 1 g IV piggyback x 1, monitor the patient in the ICU for the next 24 hours, hopefully she will be able to be discharged home in the next 24 hours. 5/6: Patient is laying down in bed in no apparent distress, she denies any chest pain, shortness of breath, her blood pressure is marginal, continue patient on metoprolol 12.5 mg orally twice every day, continue with holding amlodipine as well as hydralazine along with losartan for now, increase activity, discontinue IV fluid, repeat labs today, follow-up with the patient very closely, patient will be moved to a selective care unit increase activity level, discontinue IV fluid, monitor the patient symptoms very closely, patient underwent echocardiogram that showed normal to a fair ejection fraction about 55%, moder ate mitral regurgitation and tricuspid regurgitation with mild pulmonary hypertension. I have increased her Farxiga to 10 mg once every day. Continue to monitor the patient very closely. REVIEW OF SYSTEMS: Constitutional: No documented fever, no chills, no night sweats. No weight change. No weakness, fatigue or lethargy. No daytime sleepiness. EENT: No headache. No blurred vision or double vision, no loss of vision. No loss of Hearing, no ringing in the ears, no dizziness. No nasal drainage or congestion. No epistaxis. No sore throat. Lungs: positive for shortness of breath, no cough, no sputum production. No wheezing. Reports dyspnea with activity. Cardiovascular: No chest pain, no lower extremity edema. No palpitations. No paroxysmal nocturnal dyspnea. No orthopnea. No lightheadedness or dizziness. No syncopal episodes. Abdominal: Reports no abdominal pain. No nausea, vomiting. No diarrhea. No constipation. No bloody or tarry stools reports loss of appetite. Genitourinary: No dysuria, increased frequency, urgency. No urinary retention. Musculoskeletal: No myalgias. No muscle weakness, no gait dysfunction, no frequent falls. No back pain. No neck pain. Integumentary: No wounds, no lesions. No rash or pruritus. No unusual bruising. No change in hair or nails. Neurologic: No aphasia. No facial droop. No change in mentation. No head injury. No headache. No paralysis. No paresthesia. Psychiatric: No depression. positive for anxiety. No mood swings. Endocrine: No abnormal blood sugars. No weight change. PHYSICAL EXAMINATION: General: 84-year-old female laying down in bed in no apparent distress HEENT: Head is atraumatic, normocephalic, pupils were equal round reactive to light and recommendation, extraocular muscle movement were intact, sclera nonicteric, conjunctivae were pale, mucous membranes of the mouth are somewhat d ry. Neck: Supple, no JVP, normal carotid upstroke bilaterally, no lymphadenopathy. Chest: Decreased breath sounds at the bases, few rhonchi, no expiratory wheezes, no chest wall tenderness, no intercostal retractions. Heart: First heart sound is normal, second heart sounds normal there is systolic ejection murmur 2/6 located in the left sternal border Abdomen: Soft, nontender, nondistended, positive bowel sounds. Extremities: There is no edema no calf tenderness DP +2 bilaterally. Neurologic examination: Patient is awake alert and oriented x3, cranial nerves II-12 appear grossly intact, muscle power were 5 out of 5 in upper extremities and 5 out of 5 in bilateral lower extremities, deep tendon reflexes normal bilaterally. ASSESSMENT AND PLAN: 1. Asystole post Lexiscan infusion during stress testing with a brief CPR status post left heart catheterization that showed 60 to 70% plaque of the mid LAD with abnormal IFR of 0.87 status post successful stenting continue aspirin 81 mg once every day, clopidogrel 75 mg once every day, continue with atorvastatin 40 mg once every day, continue with metoprolol 12.5 mg orally twice every day, monitor the patient in the hospital for another 24 hours, she can be moved out of the ICU, to a 3 S., increase activity level, discontinue IV fluid. 2. Bigeminy in a patient with underlying heart disease. Continue metoprolol 12.5 mg orally twice every day, status post magnesium and potassium replacement. 3. Hypertension and hypertensive cardiovascular disease. Continue patient on metoprolol 12.5 mg orally twice every day, hold hydralazine 25 mg orally twice every day, hold amlodipine for now. 4. Mixed hyperlipidemia. Continue patient on atorvastatin 40 mg once every day, monitor lipid panel, keep LDL 55-70. 5. Prediabetes. Continue patient on Farxiga 10 mg orally once every day. 6. Chronic kidney disease stage IIIa discontinue IV fluid, continue Farxiga 10 mg once every day. Monitor the patient symptoms very closely. Avoid nephrotoxins. 7. 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 Stable at this time. 8. Osteoarthritis. Stable at this time 9. DVT prophylaxis. Heparin 5000 unit subcutaneously every 12 hours. 10. GI prophylaxis. Continue patient on Protonix 40 mg orally once every day. 11. Move the patient out of the ICU. 12. Likely home tomorrow morning Objective - Vital Signs Vital signs: Vital Signs Temp 97.7 F 08/01/24 04:00 Pulse 52 L 08/01/24 06:00 Resp 14 08/01/24 06:00 BP 129/58 08/01/24 06:00 Pulse Ox 96 08/01/24 06:00 FiO2 Intake & Output 07/31/24 07/31/24 08/01/24 06:59 18:59 06:59 Intake Total 1429 Output Total 0 1100 Balance 1429 -1100 Weight 63.503 kg 58 kg Intake: IV 889 Sodium Chloride 0.9% 1, 189 000 ml @ 0 mls/hr IV .[employer] [facility] Rx#:[id number] Oral 540 Output: Urine 0 1100 Other: Voiding Method Bedpan Bedside Commode # Voids 1 1 - Labs CBC & Chem 7: 07/31/24 09:32 08/01/24 05:08 Labs: Abnormal Lab Results - Last 24 Hours (Table) 07/31/24 07/31/24 07/31/24 Range/Units 09:23 09:32 13:03 Chloride (98-107) mmol/L BUN 35 H (7-17) mg/dL Creatinine 1.23 H (0.52-1.04) mg/dL Glucose 155 H (74-99) mg/dL POC Glucose (mg/dL) 147 H 118 H (70-110) mg/dL Ur Specific [place] (1.001-1.035) Urine Glucose (UA) (Negative) 07/31/24 08/01/24 Range/Units 17:38 05:08 Chloride 109 H (98-107) mmol/L BUN 29 H (7-17) mg/dL Creatinine 1.12 H (0.52-1.04) mg/dL Glucose (74-99) mg/dL POC Glucose (mg/dL) (70-110) mg/dL Ur Specific [place] 1.048 H (1.001-1.035) Urine Glucose (UA) 4+ H (Negative)
[2024-08-01 13:14] VITALS: BMI 24.1
--- NOTE | 2024-08-01 19:38 | P.PN ---
Progress Note - Text Mrs. Griggs an 84-year-old female who had an asystolic cardiac arrest following Lexiscan infusion during stress testing. She was successfully resuscitated with brief CPR and IV aminophylline infusion Yesterday she underwent coronary angiography She had a chronically occluded distal RCA with [id number] collaterals to the PDA Patent SVG to the distal RCA but without any flow into the PDA Mid LAD stenosis with an IFR of 0.87 Successful stenting performed by Dr. Luna She is doing well this morning asymptomatic. The radial access site is healed well. No hematoma no bruising Heart sounds S1-S2 normal Heart rate in the high 40s. Blood pressure is normal 138/60 mmHg pulse rate 4857 beats a minute Normal heart sounds normal S1 normal S2 Clear lungs no rhonchi no crackles Impression Multivessel coronary artery status post stenting to the mid LAD yesterday Asystolic cardiac arrest, brief arrest quickly reversed with aminophylline and brief CPR during Lexiscan infusion No neurologic sequelae Plan continue dual antiplatelet therapy with aspirin and Plavix Continue low-dose beta-blockers Continue atorvastatin at 80 mg p.o. daily Follow-up with Dr. Luna as an outpatient
[2024-08-01 20:07] LABS: Glucose,Whole Blood 100 mg/dL (70-110)
[2024-08-01] MEDS: ATORVASTATIN 80 MG TAB PO SCH (20:09)
[2024-08-02 02:18] LABS: Chol/HDL Ratio 2.09 Ratio; LDL Cholesterol,Calculated 48.1 mg/dL (0.0-131.0)
[2024-08-02 06:35] LABS: Basophils # (A) 0.05 10*3/uL (0.00-0.10); Basophils % (A) 0.8 %; Eosinophils # (A) 0.26 10*3/uL (0.04-0.35); HCT 40.8 % (37.2-46.3); HGB 13.1 g/dL (12.0-15.0); Lymphocytes # (A) 1.94 10*3/uL (0.90-5.00); Lymphocytes % (A) 30.1 %; MCH 31.1 pg (27.0-32.0); MCHC 32.1 g/dL (32.0-37.0); MCV 96.9 fL (80.0-97.0); Mean Platelet Volume 11.9 fL (9.5-12.2); Monocytes # (A) 0.66 10*3/uL (0.20-1.00); Monocytes % (A) 10.2 %; Neutrophils # (A) 3.52 10*3/uL (1.80-7.70); Neutrophils % (A) 54.7 %; Platelet Count 164 10*3/uL (140-440); RBC 4.21 10*6/uL (4.10-5.20); RDW 13.7 % (11.5-14.5); WBC 6.44 10*3/uL (4.50-10.00)
[2024-08-02 06:56] LABS: ALT 26 U/L (4-34); AST 46 U/L (14-36); African American GFR (CKD) 62 (>60 ml/min/1.73 sqM); Alkaline Phosphatase 73 U/L (38-126); Anion Gap 10 mmol/L; Blood Urea Nitrogen 19 mg/dL (7-17); Calcium 9.8 mg/dL (8.4-10.2); Carbon Dioxide 21 mmol/L (22-30); Chloride 109 mmol/L (98-107); Glucose 82 mg/dL (74-99); Non-African American GFR(CKD) 54 (>60 ml/min/1.73 sqM); Potassium 4.5 mmol/L (3.5-5.1); Sodium 140 mmol/L (137-145); Total Bilirubin 1.1 mg/dL (0.2-1.3)
[2024-08-02 08:23] VITALS: RESP 16; TEMP 98
[2024-08-02] MEDS: LOSARTAN-HCTZ 50-12.5 MG 1 EACH TAB PO SCH (09:15)
--- NOTE | 2024-08-02 09:53 | P.PN ---
Subjective Progress Note Date: 08/02/24 84-year-old female history of CAD s/p stent and CABG, diabetes, hypertension, and hyperlipidemia seen in the emergency department for s/p cardiac arrest, consult for ICU management. She was over at the heart office, and she was scheduled to have a stress test. During the process, she apparently became un responsive, had a cardiac arrest. She received chest compressions, for about 1 minute. There was return of spontaneous circulation was acheived. On evaluation in the emergency department, she was stable and on room air. She was receiving IV heparin. Cardiology has scheduled her to go for heart catheterization. Only complaint was chest pain, from chest compressions. White count was 7.2, hemoglobin 13, hematocrit 39, platelet count was normal. Coagulation studies were normal. Sodium 141, potassium 3.8, chloride 107, CO2 25, BUN 35, and creatinine 1.23. Glucose was 155. Troponin was less than 0.012. Chest x-ray was normal. 08/01/2024 patient seen and examined at bedside. Patient currently in the ICU. No acute events overnight. Patient complaining of chest ache from chest compressions. Denied chest pain, shortness of breath, palpitations, lightheadedness, dizziness, changes in vision. Labs today: Sodium 140, potassium 3.9, bicarb 23, calcium 9.4, BUN 29, creatinine 1.12. Liver function tests within normal levels. EKG today showed sinus bradycardia with a rate of 50 bpm, prolonged QRS at 138 MS, normal [place] interval, intraventricular delay noted at V3, no ST-T changes, QTc 461 MS. 08/02/2024 patient seen and examined at bedside. Patient currently in the ICU. No acute events overnight. No new symptoms or complaints. Labs: WBC 6.4, hemoglobin 13.1, sodium 140, potassium 4.1, bicarb 21, calcium 9.8, BUN 19, creatinine 0.96. AST slightly elevated at 46, ALT and alk phos normal. Imaging: Echocardiogram showed ejection fraction estimated 55%, moderate mitral and tricuspid regurgitation, mild to moderate pulmonary hypertension. Review of systems: Pertinent positives and negatives as discussed in HPI, a complete review of systems was performed and all other systems are negative. Physical examination: Vital signs reviewed General: non toxic, no distress, appears as stated age, on room air Derm: no unusual rashes/lesions, warm Head: atraumatic, normocephalic, symmetric Eyes: EOMI, anicteric sclera, pupils equal round reactive to light ENT: Nose and ears atraumatic Neck: No cervical lymphadenopathy, trachea midline, supple Mouth: no lip lesion, mucus membranes moist Cardiovascular: S1S2 bradycardic, no murmur Lungs: CTA bilateral, no rhonchi, no rales, no accessory muscle use Abdominal: soft, nontender to palpation, no guarding Ext: muscle strength 5 out of 5 in all 4 extremities grossly, no gross muscle a trophy, no contractures, positive dorsalis pedis pulse bilateral, no edema Neuro: CN II-XI grossly intact, no gross focal neuro deficits Psych: Alert and oriented x3, appropriate affect and mood Assessment: Cardiac arrest, status post CPR with ROSC after 1 minute, with 1 minute of cardiopulmonary resuscitation CAD with history of stent and CABG, status post catheterization and stent placement of the mid LAD POD 2 Sinus bradycardia, asymptomatic CKD stage IIIa History of diabetes mellitus. History of hypertension. History of hyperlipidemia. Plan: Continue with maximal medical therapy with Plavix 75 mg daily, aspirin 81 mg daily, and atorvastatin 40 mg daily Continue home Hyzaar 50-12.5mg, Lopressor 12.5mg PO twice daily and Farxiga 10mg daily Monitor electrolytes and renal function Continue cardiac monitoring Supplemental oxygenation as needed DVT prophylaxis: Heparin SQ every 12 hours Prognosis: Improved. Has been downgraded to cardiac stepdown unit. Will likely discharge today. Lainey Quintanilla MD PGY-1/Polishing Machine Operator Helper Dictation was produced using [employer] dictation software. please excuse any grammatical, word or spelling errors. Objective - Vital Signs Vital signs: Vital Signs Temp 97.5 F L 08/02/24 03:37 Pulse 46 L 08/02/24 03:37 Resp 14 08/02/24 03:37 BP 147/62 08/02/24 03:37 Pulse Ox 96 08/02/24 03:37 FiO2 Intake & Output 08/01/24 08/01/24 08/02/24 06:59 18:59 06:59 Intake Total 100 Output Total 1100 975 Balance -1100 -875 Weight 58 kg 58 kg 56 kg Intake: IV 100 Potassium Chloride 10 meq 100 In Water For Injection 1 100ml.bag @ 100 mls/hr IVPB Q1H [facility] Rx#: [id number] Output: Urine 1100 975 Other: Voiding Method Bedside Commode Toilet Toilet # Voids 1 1 1 # Bowel Movements 1 - Labs CBC & Chem 7: 08/02/24 05:35 08/02/24 05:35 Labs: Abnormal Lab Results - Last 24 Hours (Table) 08/01/24 Range/Units 05:08 HDL Cholesterol 60.80 H (40.00-60.00) mg/dL
[2024-08-02 10:13] VITALS: BP 139/70; PULSE 49
--- NOTE | 2024-08-02 10:18 | P.DS ---
Providers Date of admission: 07/31/24 10:58 Expected date of discharge: 08/02/24 Attending physician: Suki Poe Consults: 07/31/24 09:22 Consult Physician Urgent Consulting Provider: Alonso Armando Consult Reason/Comments: cardiac arrest during stress test Do you want consulting provider notified?: Yes 07/31/24 10:58 Consult Physician Stat Consulting Provider: Ramses Castelan Reason/Comments: icu care Do you want consulting provider notified?: Already Contacted 07/31/24 12:58 Consult Physician Routine Consulting Provider: Alonso Armando Consult Reason/Comments: Post Interventional Patient Do you want consulting provider notified?: Already Contacted Primary care physician: Suki Poe [facility] Course: ISTORY OF PRESENT ILLNESS: This is an 84-year-old female with a previous medical history significant for hypertension and hypertensive cardiovascular disease, mixed hyperlipidemia, prediabetes, chronic kidney disease stage IIIa, history of coronary artery disease status post coronary artery bypass graft with SVG to RCA back in 2019 and history of left heart catheterization with PCI and stent placement patient has been having issues with recurrent chest pain associated with dyspnea exertion, 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, and she underwent Lexiscan Cardiolite stress test, after the infusion of the Lexiscan s he had a brief episode of asystole requiring brief CPR, EMS was contacted and the patient was transferred to the emergency department at [facility], in the emergency department patient was doing fine, awake and alert and oriented x 3, patient chest x-ray did not show evidence of acute abnormalities, she did have a brief episode of CPR, because of the presentation she was admitted to the ICU, prior to that the patient underwent left heart catheterization through the left radial artery and that showed evidence of 60 to 70% stenosis of the mid LAD with abnormal IFR of 0.87, status post PCI with a stent placement, also he was found that the patient has left main free of disease, left circumflex artery free of disease as well, there was also a totally occluded distal RCA with a patent graft SVG to the RCA not filling the PDA the PDA is getting collateral from the LAD, patient was started back on aspirin, Plavix, and she was admitted back to the ICU, her EKG showing evidence of bigeminy, her magnesium level was 1.8, I spoke with the nursing staff about adding magnesium sulfate 1 g IV piggyback x 1, monitor the patient in the ICU for the next 24 hours, hopefully she will be able to be discharged home in the next 24 hours. 08/01: Patient is laying down in bed in no apparent distress, she denies any chest pain, shortness of breath, her blood pressure is marginal, continue patient on metoprolol 12.5 mg orally twice every day, continue with holding amlodipine as well as hydralazine along with losartan for now, increase activity, discontinue IV fluid, repeat labs today, follow-up with the patient very closely, patient will be moved to a selective care unit increase activity level, discontinue IV fluid, monitor the patient symptoms very closely, patient underwent echocardiog kalie that showed normal to a fair ejection fraction about 55%, moderate mitral regurgitation and tricuspid regurgitation with mild pulmonary hypertension. I have increased her Farxiga to 10 mg once every day. Continue to monitor the patient very closely. 08/02: Patient has been waiting for a bed out of the ICU. Her vital signs have been stable, heart rate in the high 40s and 50s. Repeat blood work reveals normal CBC. Potassium 4.5, BUN 19 creatinine 0.96. Triglycerides 90, cholesterol 127, LDL 48. Patient has been cleared for discharge from cardiology and will follow-up with Dr. Luna as an outpatient. Patient is on dual antiplatelet therapy with aspirin and Plavix. Patient will be discharged home today in stable condition. DISCHARGE DIAGNOSES: 1. Asystole post Lexiscan infusion during stress testing with a brief CPR status post left heart catheterization that showed 60 to 70% plaque of the mid LAD with abnormal IFR of 0.87 status post successful stenting. 2. Bigeminy in a patient with underlying heart disease. 3. Hypertension and hypertensive cardiovascular disease. 4. Mixed hyperlipidemia. 5. Prediabetes. 6. Chronic kidney disease stage IIIa 7. 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 8. Osteoarthritis. Greater than 35 minutes was utilized and coordinating patient's discharge. Impression and plan of care have been directed as dictated by the signing physician. Pearl Rivera nurse practitioner acting as scribe for signing physician. Patient Condition at Discharge: Stable Plan - Discharge Summary Discharge Rx Participant: No New Discharge Prescriptions: New Dapagliflozin Propanediol [Farxiga] 10 mg PO QAM #30 tab Metoprolol Tartrate [Lopressor] 12.5 mg PO BID #60 tab Nitroglycerin Sl Tabs [Nitrostat] 0.4 mg SUBLINGUAL Q5M PRN #25 tab PRN Reason: Chest Pain Clopidogrel [Plavix] 75 mg PO DAILY #90 tab Continue amLODIPine [Norvasc] 5 mg PO DAILY Atorvastatin [Lipitor] 40 mg PO HS Losartan/Hydrochlorothiazide [Losartan-Hctz 100-25 mg Tab] 1 tab PO DAILY Aspirin 81 mg PO HS Multivitamins, Thera [Multivitamin (formulary)] 1 tab PO DAILY Isosorbide Mononitrate ER [Imdur] 30 mg PO DAILY Doxycycline Hyclate 100 mg PO BID Discontinued Dapagliflozin Propanediol [Farxiga] 5 mg PO DAILY Metoprolol Tartrate [Lopressor] 25 mg PO HS hydrALAZINE HCL 25 mg PO BID 6 Days #12 tablet Discharge Medication List Aspirin 81 mg PO HS 08/20/15 [History] Atorvastatin [Lipitor] 40 mg PO HS 08/20/15 [History] Losartan/Hydrochlorothiazide [Losartan-Hctz 100-25 mg Tab] 1 tab PO DAILY 08/20/15 [History] amLODIPine [Norvasc] 5 mg PO DAILY 08/20/15 [History] Doxycycline Hyclate 100 mg PO BID 07/31/24 [History] Isosorbide Mononitrate ER [Imdur] 30 mg PO DAILY 07/31/24 [History] Multivitamins, Thera [Multivitamin (formulary)] 1 tab PO DAILY 07/31/24 [History] Clopidogrel [Plavix] 75 mg PO DAILY #90 tab 08/02/24 [Rx] Dapagliflozin Propanediol [Farxiga] 10 mg PO QAM #30 tab 08/02/24 [Rx] Metoprolol Tartrate [Lopressor] 12.5 mg PO BID #60 tab 08/02/24 [Rx] Nitroglycerin Sl Tabs [Nitrostat] 0.4 mg SUBLINGUAL Q5M PRN #25 tab 08/02/24 [Rx] Follow up Appointment(s)/Referral(s): Suki Poe MD [Primary Care Provider] - 1 Week Hector Luna MD [STAFF PHYSICIAN] - 1 Week Discharge Disposition: HOME SELF-CARE
--- NOTE | 2024-08-02 11:03 | P.PN ---
Progress Note - Text Patient is doing well. Denies any chest discomfort dizziness lightheadedness or palpitations On examination pulse rate 49 to 59 bpm Heart sounds S1-S2 normal no murmurs or gallops or rub Breath sounds are clear Radial access site has healed well Impression Coronary artery disease Status post mid LAD stenting Right bundle branch block at baseline Asystolic cardiac arrest upon infusion of Lexiscan Patient is stable to go home today and follow-up with Dr. Luna within 1 week
== END 2024-08-02 11:47 | disposition home or self-care (01) | DRG 321 ==
LOC: EC 09:18 → 2SICU 10:58
PROVIDERS: ADMIT Internal Medicine; ATTEND Internal Medicine
PROC: 4A033BC Measurement of Arterial Pressure, Coronary, Percutaneous Approach (ICD-10-PCS; principal; 2024-07-31 12:00)
PROC: 027034Z Dilation of Coronary Artery, One Artery with Drug-eluting Intraluminal Device, Percutaneous Approach (ICD-10-PCS; principal; 2024-07-31 12:00)
PROC: B240ZZ3 Ultrasonography of Single Coronary Artery, Intravascular (ICD-10-PCS; principal; 2024-07-31 12:00)
PROC: 4A023N7 Measurement of Cardiac Sampling and Pressure, Left Heart, Percutaneous Approach (ICD-10-PCS; principal; 2024-07-31 12:00)
PROC: B2121ZZ Fluoroscopy of Single Coronary Artery Bypass Graft using Low Osmolar Contrast (ICD-10-PCS; principal; 2024-07-31 12:00)
PROC: B2111ZZ Fluoroscopy of Multiple Coronary Arteries using Low Osmolar Contrast (ICD-10-PCS; principal; 2024-07-31 12:00)
DX: I25.10 Atherosclerotic heart disease of native coronary artery without angina pectoris (principal); I46.2 Cardiac arrest due to underlying cardiac condition; N18.31 Chronic kidney disease, stage 3a; E11.22 Type 2 diabetes mellitus with diabetic chronic kidney disease; I13.10 Hypertensive heart and chronic kidney disease without heart failure, with stage 1 through stage 4 chronic kidney disease, or unspecified chronic kidney disease; I08.1 Rheumatic disorders of both mitral and tricuspid valves; I25.84 Coronary atherosclerosis due to calcified coronary lesion; I25.82 Chronic total occlusion of coronary artery; I44.7 Left bundle-branch block, unspecified; E78.2 Mixed hyperlipidemia; R00.1 Bradycardia, unspecified; I49.3 Ventricular premature depolarization; M47.816 Spondylosis without myelopathy or radiculopathy, lumbar region; M54.31 Sciatica, right side; Z79.82 Long term (current) use of aspirin; Z79.84 Long term (current) use of oral hypoglycemic drugs; Z79.899 Other long term (current) drug therapy; Z95.1 Presence of aortocoronary bypass graft; Z95.5 Presence of coronary angioplasty implant and graft
CPT/HCPCS: 36415; 71045; 80053; 80061; 81003; 83735; 83880; 84484; 85025; 85610; 85730; 92978; 93005; 93306; 93458; 93799; 96361; 96365; 99291